=== PATIENT | female | born 1945 | race Caucasian/White ===

== ENCOUNTER 2017-01-14 05:07 | Observation (INO) | payer MEDICARE, OTHER ==
--- NOTE | 2017-01-14 05:33 | ED.PDOC ---
History of Present Illness - General Chief Complaint: General Stated Complaint: low blood sugar Time Seen by Provider: 01/14/17 05:28 Source: patient, RN notes reviewed, Vital Signs reviewed Exam Limitations: no limitations - History of Present Illness Initial Comments: Patient is a 71 y/o insulin dependent diabetic who was found unconscious by her just TMR TEACHER. He called EMS. EMS got an initial blood sugar of below 15. They gave her an AMP of D50 and patient regained consciousness. Patient has had several episodes of hypoglycemia in the past several months. She is unable to feel that her blood sugar is getting low until it is too late. 3 days ago, EMS was called out and she had to be given D50 at that time as well. Patient ate a sandwich at about 1800 last night and has not had anything to eat since. Patient has no complaints. She denies any fever, SOB, or nausea/vomiting. She is currently taking Lantus 68 units BID and Humalog 38 units BID. Patient's slot host is Trinidad Rubalcava M.D. in [facility]. Timing/Duration: 1/2 hour Severity: severe Improving Factors: other - D50 Associated Symptoms: denies symptoms Allergies/Adverse Reactions: Allergies Codeine Allergy (Verified 01/14/17 05:22) Home Medications: Ambulatory Orders Amitriptyline HCl 75 mg PO DAILY 01/14/17 Aspirin [(None)] 325 mg PO QD 01/14/17 Atorvastatin Calcium [Lipitor] 40 mg PO DAILY 01/14/17 Fluconazole 150 mg PO DAILY 01/14/17 Furosemide 40 mg PO DAILY 01/14/17 Gabapentin 300 mg PO DAILY 01/14/17 Hydrochlorothiazide 12.5 mg PO DAILY 01/14/17 Insulin Aspart [Novolog] 100 unit SC ACHS 01/14/17 Loratadine [Claritin] 10 mg PO DAILY 01/14/17 Metformin HCl 1,000 mg PO DAILY 01/14/17 Metoprolol Succinate [Metoprolol Succinate ER] 50 mg PO DAILY 01/14/17 Nitroglycerin 0.4 mg Tab [Nitrostat] 1 ea SL PRN 01/14/17 Ramipril 10 mg PO DAILY 01/14/17 Review of Systems - Review of Systems Constitutional: States: no symptoms reported EENTM: States: no symptoms reported Respiratory: States: no symptoms reported Cardiology: States: no symptoms reported Gastrointestinal/Abdominal: States: no symptoms reported Genitourinary: States: no symptoms reported Musculoskeletal: States: no symptoms reported Skin: States: no symptoms reported Neurological: States: other - syncope Endocrine: States: other - hypoglycemia Hematologic/Lymphatic: States: no symptoms reported All other Systems: Reviewed and Negative Past Medical History (General) - Patient Medical History Hx Seizures: No Hx Stroke: No Hx Dementia: No Hx Asthma: No Hx of COPD: No Hx Cardiac Disorders: No Hx Congestive Heart Failure: No Hx Pacemaker: No Hx Hypertension: Yes Hx Thyroid Disease: No Hx Diabetes: Yes Hx Gastroesophageal Reflux: No Hx Renal Disease: No Hx Cancer: No Hx of HIV: No Hx Hepatitis C: No Hx MRSA: No Surgical History: appendectomy, tonsillectomy, Hysterectomy - Vaccination History Hx Tetanus, Diphtheria Vaccination: No Hx Influenza Vaccination: Yes Hx Pneumococcal Vaccination: Yes Immunizations Up to Date: No - Social History Hx Tobacco Use: No Hx Chewing Tobacco Use: No Hx Alcohol Use: Yes Hx Substance Use: No Hx Substance Use Treatment: No Hx Depression: No Feels Threatened In Home Enviroment: No Feels Threatened In a Relationship: No Hx Physical Abuse: No Hx Emotional Abuse: No Hx Suspected Abuse: No Family Medical History - Family History Mother Family History: Unknown Living Status: Physical Exam - Physical Exam General Appearance: Alert, Comfortable, No apparent distress Eye Exam: bilateral normal Ears, Nose, Throat: hearing grossly normal, normal ENT inspection Neck: non-tender, full range of motion Respiratory: no respiratory distress, no accessory muscle use, wheezing Cardiovascular/Chest: regular rate, rhythm, no edema, no murmur Gastrointestinal/Abdominal: normal bowel sounds, non tender, soft, no organomegaly Extremity: non-tender, normal inspection Neurologic: alert, normal mood/affect, oriented x 3 Skin Exam: normal color, warm/dry Progress - Progress Progress: 01/14/17 07:[address] Barragan at 0700 - EKG/XRAY/CT XRAY: chest - No acute process Departure - Departure Disposition: Discharge to Home or Self Care Departure Forms: ED Discharge - Pt. Copy, Patient Portal Self Enrollment Referrals: Fausto Guzman MD [Primary Care Provider] - 1-2 Weeks Home Medications: Ambulatory Orders Amitriptyline HCl 75 mg PO DAILY 01/14/17 Aspirin [(None)] 325 mg PO QD 01/14/17 Atorvastatin Calcium [Lipitor] 40 mg PO DAILY 01/14/17 Fluconazole 150 mg PO DAILY 01/14/17 Furosemide 40 mg PO DAILY 01/14/17 Gabapentin 300 mg PO DAILY 01/14/17 Hydrochlorothiazide 12.5 mg PO DAILY 01/14/17 Insulin Aspart [Novolog] 100 unit SC ACHS 01/14/17 Loratadine [Claritin] 10 mg PO DAILY 01/14/17 Metformin HCl 1,000 mg PO DAILY 01/14/17 Metoprolol Succinate [Metoprolol Succinate ER] 50 mg PO DAILY 01/14/17 Nitroglycerin 0.4 mg Tab [Nitrostat] 1 ea SL PRN 01/14/17 Ramipril 10 mg PO DAILY 01/14/17
--- NOTE | 2017-01-14 06:16 | RAD ---
EXAM: Single view chest. INDICATION: Chest pain. COMPARISON: Chest x-ray: 07/18/2007. FINDINGS: Cardiac silhouette: Enlarged Genet: Unremarkable. Lobar consolidation: None. Pleural effusion: None. Pneumothorax: None. Other: None. Bones: Unremarkable. Other: None. IMPRESSION: 1. No acute cardiopulmonary process. Electronically signed by: Reji Guzman MD 01/14/2017 6:16 AM CDT
[2017-01-14] MEDS ORDERED: DEXTROSE 5% (AVIVA) 500ML 500 ML IVPB ONE (06:56)
[2017-01-14] MEDS ORDERED: DEXTROSE 50% 25 GM/50 ML SYG IV ONE (07:00)
[2017-01-14] MEDS: DEX 5% W/NACL 0.45% 1000ML 1,000 ML IVS PRN ×2 (07:29→22:15)
--- NOTE | 2017-01-14 08:55 | HP ---
SUPERVISING PHYSICIAN: Osmani Aguillon M.D. CHIEF COMPLAINT: Low blood sugar. HISTORY OF PRESENT ILLNESS: Ms. Cottrell is a 71 year-old insulin- dependent diabetic that is also on Metformin, who was found unconscious by her just prior to arrival at home. He called EMS. On arrival, EMS initiated blood sugar and found it be below 15. At that time, she was given 1 amp of D50 and the patient regained consciousness. The patient has had several episodes of hypoglycemia in the past several months. She is unable to feel when her blood sugar is getting low until it is way too late. Three days previous to this episode, EMS was called again to the patient's home where she was once again found to be hypoglycemic and she was given an amp of D50. The patient had no further complaints. No shortness of breath, fever, nausea or vomiting. It is noted that normally the patient takes 68 units of Lantus b.i.d. and Humalog 38 units b.i.d. along with Glucophage 1,000 mg b.i.d. Laboratory studies in the Emergency Department on arrival showed the patient had a blood sugar of 56 with normal electrolytes with potassium 4.8. CBC showed slightly elevated white count of 11.8 with no left shift. Urinalysis showed just 100 glucose, otherwise within normal limits. While in the E. R., she was given a sandwich, however her blood sugar continued to remain low despite D50 for a total of 3 amps eventually requiring the patient to be placed on a D5 half normal saline drip to maintain stable blood sugars. Given that she was requiring a significant amount of D50 and was remaining symptomatic with the blood sugars in the 40s while in the E. R., the patient is to be placed in Observation to further monitor and assist with hypoglycemia, and to adjust her insulin dosages. She was admitted in stable condition. PAST MEDICAL HISTORY: 1. Diabetes mellitus on insulin and oral therapy. 2. Hypertension. 3. Allergies. 4. Coronary artery disease. 5. Hyperlipidemia. 6. Morbid obesity. PAST SURGICAL HISTORY: 1. Appendectomy. 2. Tonsillectomy at 5 years of age. 3. Hysterectomy. 4. Coronary artery stent placement in 2005 at [facility]. 5. History of kidney stones. HOME MEDICATIONS: Please refer to updated list of medications that have been verified in the electronic medical records. Current medications listed include: 1. Hydrochlorothiazide 12.5 mg daily. 2. Neurontin 300 mg tablets 1 capsule t.i.d. p.r.n. 3. Aspirin 81 mg tablet every morning. 4. NovoLog 30 units t.i.d. 5. Metformin 1,000 mg twice daily. 6. Lantus 66 units b.i.d. 7. Metoprolol 25 mg twice daily. 8. Atorvastatin 40 mg daily. 9. Amitriptyline 75 mg tablet daily. 10. Lasix 1/2 tablet daily. FAMILY HISTORY: Father is from diabetes complications at 83. Mother is at a young age in 1945. 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 She is . She denies ever smoking and only drinks on rare occasions. REVIEW OF SYSTEMS: CONSTITUTIONAL: Negative for any chills, fever, fatigue or unintentional weight loss or weight gain. CARDIOVASCULAR: Denies any chest pains, palpitations or syncopal episodes. RESPIRATORY: Does note that she has some mild exertional dyspnea, but nothing new. She denies a cough. GASTROINTESTINAL: Denies any constipation, diarrhea or abdominal pain. GENITOURINARY: Denies any dysuria, nocturia or other urinary symptoms. NEUROLOGIC: Negative for any types of headaches or syncopal episodes. ENDOCRINE: As noted in the History of Present Illness, several hypoglycemic episodes in the last several weeks. PHYSICAL EXAMINATION: VITAL SIGNS: Temperature 98.6, pulse 78, blood pressure 164/81, respirations 18 , satting 99% on room air. Admission weight 120.9 kg. GENERAL: The patient is alert. Appears to be in no distress. She is well nourished, obviously obese but well hydrated. HEENT: Tympanic membranes are clear bilaterally. Oropharynx is pink and moist without any lesions. NECK: Supple, non-tender, full range of motion with no jugular venous distention noted. CHEST: Lungs are clear to auscultation bilaterally without any rhonchi, wheezing or rales. CARDIOVASCULAR: Regular rate and rhythm without appreciable murmurs, gallops, or rubs. ABDOMEN: Obese but soft, non-tender. Positive bowel sounds. EXTREMITIES: No clubbing, cyanosis or edema. NEUROLOGIC: She is alert and oriented times three. Cranial nerves II-XII are grossly intact. Facial features are symmetrical. Extraocular movements are within normal limits. There is no nystagmus noted. There are no focal or lateralizing neuromotor deficits. LABORATORY: CBC on admission showed a mild leukocytosis of 11.8 with hemoglobin 12.4, hematocrit 38.8, platelets 282,000. Differential showed to be without a left shift. Chemistries shows normal electrolytes with potassium 4.8. Initial blood sugar was 98 on admission to the Emergency Department, shortly after was down to 56. Hemoglobin A1c was 6.1. Glucose remained low and on admission after D5 half normal saline initiation in the Emergency Department and at the time of admission to the Medical/Surgical floor blood sugar was 98. Urinalysis shows 100 glucose, otherwise within normal limits. RADIOLOGY: Chest x-ray per radiology interpretation shows no acute cardiopulmonary processes. ASSESSMENT: 1. Hypoglycemic episode with labile blood sugars secondary to insulin mismanagement requiring close monitoring and IV glucose in a patient both on insulin and oral therapies, type 2 diabetes mellitus. 2. History of type 2 diabetes mellitus both on insulin and oral therapy with poorly controlled blood sugars with significant hypoglycemic events with the patient noncompliant with monitoring of blood sugars at home. 3. Mild renal insufficiency. 4. History of hypertension. 5. Hyperlipidemia. 6. Morbid obesity as noted with a body mass index of 45.8. PLAN: The patient will be placed in Observation to assist with further stabilization of her blood sugars. She will remain on D5 half normal saline until her blood sugars remain stable. At that point, will decrease her rate and start on an oral diet. Until she does stabilize on her blood sugars, continue to monitor blood sugars by finger stick every 2 hours after which when she stabilizes will go to a.c. and h.s. with a sliding scale. She will need close monitoring and once given enough time to clear her previous insulin regimen, initiation back on insulin and oral therapy regimen with close monitoring prior to discharge. I will try to touch base with her carpet floor layer apprentice as well as Dr. Guzman tomorrow to further assist with discharge planning and management of her insulin regimen. Anticipate length of stay to be 1 to 2 days. Until discharge, continue to monitor closely and treat appropriately. #[id number] [facility]
[2017-01-14] MEDS ORDERED: SODIUM CHLORIDE 0.9% (FLUSH) 10 ML SYG IV PRN (09:24)
[2017-01-14] MEDS ORDERED: IV SET AND CAP CHANGE INJ INJ SCH (09:30)
[2017-01-14] MEDS: METOPROLOL SUCCINATE XL 50 MG TAB PO SCH (13:38)
[2017-01-14] MEDS: RAMIPRIL 5 MG CAP PO SCH ×2 (13:39→21:20)
[2017-01-14] MEDS: GABAPENTIN 300 MG CAP PO SCH ×2 (13:39→21:19)
[2017-01-14] MEDS ORDERED: GLUCAGON INJ 1 MG VIAL SUBCU PRN (17:24)
[2017-01-14] MEDS: ATORVASTATIN 20 MG TAB PO SCH (21:20)
[2017-01-14] MEDS: AMITRIPTYLINE HCL 25 MG TAB PO SCH (21:20)
[2017-01-14] MEDS: INSULIN LISPRO 100 UNITS/ML PEN SUBCU SCH (22:00)
[2017-01-15] MEDS: INSULIN LISPRO 100 UNITS/ML PEN SUBCU SCH ×4 (07:49→21:37)
[2017-01-15] MEDS: CELECOXIB 100 MG CAP PO SCH (07:53)
[2017-01-15] MEDS: METOPROLOL SUCCINATE XL 50 MG TAB PO SCH (08:50)
[2017-01-15] MEDS: RAMIPRIL 5 MG CAP PO SCH ×2 (08:50→20:50)
[2017-01-15] MEDS: GABAPENTIN 300 MG CAP PO SCH ×2 (08:50→20:50)
[2017-01-15] MEDS: ASPIRIN TABLET 325 MG TAB PO SCH (08:50)
[2017-01-15] MEDS: metFORMIN HCL 500 MG TAB PO SCH ×2 (09:01→16:56)
[2017-01-15] MEDS ORDERED: metFORMIN HCL 500 MG TAB ONE (09:01)
[2017-01-15] MEDS: KCL 20MEQ/0.45% NS 1,000 ML IVS PRN (11:46)
--- NOTE | 2017-01-15 18:37 | PN ---
DATE: 01/15/17 SUPERVISING PHYSICIAN: Venkat Barragan M.D. SUBJECTIVE: The patient feels better this morning. She still remains on half D5W IV drip and has shown much better stabilization in his blood sugars. She remains afebrile. She has had no episodes of hypoglycemia since admission. She remains on a 2,000 ADA calorie diet and is currently on insulin sliding scale. OBJECTIVE: VITAL SIGNS: Temperature 97.6, pulse 84, blood pressure 124/68, respirations 16, satting 94% on room air. Weight is 120.2 kg. CHEST: Clear to auscultation bilaterally. HEART: Regular rate and rhythm. ABDOMEN: Obese but soft, non-tender. Positive bowel sounds. EXTREMITIES: No clubbing, cyanosis or edema. NEUROLOGIC: She is alert and oriented times three. LABORATORY: CBC this morning shows normalization of her white count to 9.0, hemoglobin 11.5, hematocrit 34.8, platelet count 269,000. Differential shows to be within normal limits. Chemistries today show normal electrolytes with potassium 4.6 with BUN 32, creatinine 1.34, glucose 130. Review of her blood sugars have been fairly steady between 123 and 179, calcium 8.8. ASSESSMENT: 1. Hypoglycemic episodes, multiple with labile blood sugars secondary to insulin mismanagement requiring close monitoring of IV glucose since admission in a patient both on insulin and oral therapies with type 2 diabetes mellitus. 2. History of type 2 diabetes mellitus both on insulin and oral therapy with poorly controlled blood sugars with significant hypoglycemic events with the patient being very noncompliant with her monitoring of blood sugars as well as diet. 3. Mild renal insufficiency and likely some dehydration showing improvement with fluids. 4. History of hypertension, stable. 5. Hyperlipidemia. 6. Morbid obesity with a body mass index of 45.8, although the patient has reported that she has been losing weight as she has been working out since assisted. PLAN: The patient has shown stabilization in her blood sugar since admission. Will plan to transition her back to her oral medications to include Metformin 1, 000 twice daily and continue with sliding scale. I will change her IV fluids from half D5 to half normal saline with 20 of potassium to continue with assistance in improving her renal function. She will need close monitoring in regards to her blood sugars and need for insulin to better assess her insulin needs once discharged. Anticipate probably discharge tomorrow once we can get a better plan of care in regards to needed insulin therapy. Will need to touch base with her handle machine operator once close to discharge to further assist in discharging with a plan for insulin therapy. She sees Dr. Trinidad Rubalcava in [place]. Until discharge, will continue to monitor the patient closely and treat appropriately. #[id number] [facility]
--- NOTE | 2017-01-15 19:11 | PCM.CORE ---
Physician DVT/VTE - Nurse DVT Assessment & Total Each Risk Factor Represents 2 Points: Age 60-74 Each Risk Factor Represents 1 Point: Medical PT at Bed Rest Each Risk Factor is 1 Point: Obesity (BMI >25) DVT Assessment Score: 4 - 5 or more Very High Risk Treatments: Early Ambulation *, Sequential Compression Device Pharmacological: Enoxaparin 40mg SQ Daily
[2017-01-15] MEDS: AMITRIPTYLINE HCL 25 MG TAB PO SCH (20:50)
[2017-01-15] MEDS: ATORVASTATIN 20 MG TAB PO SCH (20:50)
[2017-01-15] MEDS ORDERED: ENOXAPARIN SODIUM 40 MG/0.4 ML SYG SUBCU SCH (21:00)
[2017-01-16] MEDS: KCL 20MEQ/0.45% NS 1,000 ML IVS PRN (00:40)
[2017-01-16] MEDS: INSULIN LISPRO 100 UNITS/ML PEN SUBCU SCH ×3 (07:31→16:33)
[2017-01-16] MEDS: CELECOXIB 100 MG CAP PO SCH (07:56)
[2017-01-16] MEDS: metFORMIN HCL 500 MG TAB PO SCH ×2 (07:56→16:48)
[2017-01-16] MEDS ORDERED: SODIUM CHLORIDE 0.9% (FLUSH) 10 ML SYG IV SCH (09:00)
[2017-01-16] MEDS: GABAPENTIN 300 MG CAP PO SCH (09:05)
[2017-01-16] MEDS: RAMIPRIL 5 MG CAP PO SCH (09:05)
[2017-01-16] MEDS: ASPIRIN TABLET 325 MG TAB PO SCH (09:05)
[2017-01-16] MEDS: METOPROLOL SUCCINATE XL 50 MG TAB PO SCH (09:05)
[2017-01-16 19:15] VITALS: BP 132/88; TEMP 98.7; O2SAT 97
--- NOTE | 2017-01-29 10:43 | DS ---
SUPERVISING PHYSICIAN: Venkat Barragan MD DISCHARGE DIAGNOSIS: 1. Hypoglycemic episode, multiple with labile blood sugars secondary to insulin mismanagement, requiring close monitoring and IV glucose since admission in a patient on both insulin and oral therapies. 2. History of type 2 diabetes mellitus on both insulin and oral therapy with poorly controlled blood sugars with significant hypoglycemic events with the patient very noncompliant with monitoring of blood sugars as well as diet. 3. Mild renal insufficiency and likely some dehydration, showing improvement with fluids. 4. History of hypertension, stable. 5. Hyperlipidemia. 6. Morbid obesity with a body mass index of 45.8. HISTORY OF PRESENT ILLNESS: This is a 71-year-old female patient who is an insulin-dependent diabetic that is also on Metformin, who was found unconscious by her just prior to arrival at home. He called EMS. On arrival, EMS initiated blood sugar and found it be below 15. At that time, she was given 1 amp of D50 and the patient regained consciousness. The patient has been reported to have had several episodes of hypoglycemia in the past several months. She does not feel when her blood sugar is getting low. Three days prior to her admission, she was found by EMS to be hypoglycemic and given D50. The patient normally takes 68 units of Lantus b.i.d. and Humalog 38 units b.i.d. along with Glucophage 1,000 mg b.i.d. She was admitted to the hospital to stabilize her blood sugars and further monitor her hypoglycemia as well as adjust her insulin dosage. HOSPITAL COURSE: Over the next two days, her blood sugars stabilized as well as her labs. She sees Dr. Trinidad Rubalcava in [place] who is her drosophere operator. Her CBC stabilized as well as her chemistries. Her blood sugars were in the 130s to 170s. Her long-acting insulin was never re-started. I spoke to her drosophere operator's office and she has an appointment with Dr. Rubalcava on 01/31/17 at 11:15. She will be discharged home. DISCHARGE PLAN: The patient will be discharged home in stable condition. She is to resume her diabetic diet. She is to increase her activity as tolerated and followup with Dr. Rubalcava on 01/31/17 at 11:15 as well as she needs to followup with Dr. Guzman at some point. She has also been told not to re-start her long-acting insulin and continue her sliding scale and she was given a sliding scale per the hospital protocol until she can see Dr. Rubalcava and she can adjust her dosage. DISCHARGE MEDICATIONS: 1. Aspirin. 2. Ramipril. 3. Nitroglycerin. 4. Metoprolol. 5. Metformin. 6. Loratadine. 7. Hydrochlorothiazide. 8. Gabapentin. 9. Furosemide. 10. Fluconazole. 11. Atorvastatin. 12. Amitriptyline. 13. Celebrex. 14. Meloxicam. 15. Humalog insulin per hospital sliding scale. Dr. Barragan is the collaborating physician and available for consultation. #[id number] [facility]
== END 2017-01-16 19:30 | disposition home or self-care (01) ==
LOC: ER 05:07 → OBSVTOIN 08:53 → MS 08:53 → INTOOBSV 08:53
PROVIDERS: ADMIT Nurse Practitioner Family; ATTEND Nurse Practitioner Acute Care
DX: E11.641 Type 2 diabetes mellitus with hypoglycemia with coma (principal); N17.9 Acute kidney failure, unspecified; Z68.42 Body mass index [BMI] 45.0-49.9, adult; E86.0 Dehydration; I10 Essential (primary) hypertension; N28.9 Disorder of kidney and ureter, unspecified; E78.5 Hyperlipidemia, unspecified; E66.01 Morbid (severe) obesity due to excess calories; I25.10 Atherosclerotic heart disease of native coronary artery without angina pectoris; Z91.11 Patient's noncompliance with dietary regimen; Z91.19 Patient's noncompliance with other medical treatment and regimen; Z79.4 Long term (current) use of insulin; Z79.84 Long term (current) use of oral hypoglycemic drugs; Z79.82 Long term (current) use of aspirin; Z79.899 Other long term (current) drug therapy; Z88.6 Allergy status to analgesic agent; Z95.5 Presence of coronary angioplasty implant and graft; Z83.3 Family history of diabetes mellitus
CPT/HCPCS: 36415 ×3; 36416 ×16; 71010; 80048 ×2; 80053; 81001; 82948 ×18; 83036; 85025 ×3; 94760 ×4; 96361 ×3; 96372 ×3; 96374; 96376; 99284; G0378; J1650; J1815; J3480 ×2; J7799 ×3

== ENCOUNTER → 2017-03-07 | Outpatient (CLI) | payer OTHER, MEDICARE ==
--- NOTE | 2017-03-08 10:30 | RAD ---
EXAM DESCRIPTION: Toes,Left CLINICAL HISTORY: 71 years, Female, PAIN COMPARISON: None. FINDINGS: No evidence of fractures in the left toes. Joint space is unremarkable. Soft tissues unremarkable except for a small sliver of calcification seen dorsally to the fourth digit distal interphalangeal joint. IMPRESSION: No acute findings. A small soft tissue calcifications seen at the dorsal aspect of the fourth digit distal interphalangeal joint. Nonspecific. Electronically signed by: Roosevelt Reynolds MD 03/08/2017 10:29 AM CDT
== END | disposition home or self-care (01) ==
LOC: LAB.O 12:10
PROVIDERS: ATTEND Nurse Practitioner Family
DX: M79.675 Pain in left toe(s) (principal)

== ENCOUNTER 2019-08-09 11:30 | Emergency (ER) | payer MEDICARE, OTHER ==
[2019-08-09] MEDS ORDERED: HYDROmorphone HCL INJ 2 MG/ML VIAL IM ONE ×2 (11:52→15:37)
--- NOTE | 2019-08-09 13:28 | RAD ---
EXAM DESCRIPTION: Hip,Left 2 Views CLINICAL HISTORY: 74 years Female, pain COMPARISON: None. FINDINGS: 2 views of the left hip show mild to moderate degenerative changes and vascular calcifications without acute fracture or malalignment. No radiopaque foreign body. IMPRESSION: Degenerative changes and vascular calcifications without acute left hip abnormality. If clinical suspicion of acute hip abnormality persists, CT or MRI should be considered. Electronically signed by: Rafiq Ambrosio MD 08/09/2019 1:26 PM ACUPUNCTURIST
[2019-08-09] MEDS ORDERED: LIDOCAINE 1% 10 ML VIAL INJ ONE (13:51)
[2019-08-09] MEDS ORDERED: TRIAMCINOLONE ACETONIDE INJ 40 MG/ML VIAL ONE ×2 (13:51→13:54)
--- NOTE | 2019-08-09 15:19 | CT ---
EXAM DESCRIPTION: Pelvis CLINICAL HISTORY: pain COMPARISON: Left hip radiograph same day.. TECHNIQUE: CT of the pelvis was obtained without intravenous contrast. MPRs are created and reviewed as well. FINDINGS: BONE AND JOINTS: The pelvis bones are intact. No acute displaced fracture or dislocation seen. The bilateral sacroiliac joints and symphysis pubis are intact without diastases. The left hip joint is intact without displaced fracture or dislocation. Mild bilateral hip osteoarthrosis with acetabular roof marginal osteophyte formation. No significant left hip joint effusion. No suspicious lytic or sclerotic osseous lesion. Mild degenerative changes of the bilateral sacroiliac joints with vacuum phenomenon. Mild lower lumbar spine spondylosis. SOFT TISSUES: Mild fat stranding and subcutaneous gas is noted along the left lateral hip soft tissues. No free fluid within the pelvis. No pelvic sidewall hematoma. No drainable fluid collection or abscess. IMPRESSION: 1. Mild fat stranding and gas within the left lateral hip subcutaneous soft tissues. For correlation with trauma or injections within this region. No drainable fluid collection or abscess. 2. No acute displaced pelvic or left hip fracture or dislocation. If patient's symptoms persist, consider further evaluation with MRI. 3. Mild bilateral hip osteoarthrosis with acetabular roof marginal osteophyte and mild acetabular over coverage. This exam was performed according to our departmental dose-optimization program, which includes automated exposure control, adjustment of the mA and/or kV according to patient size and/or use of iterative reconstruction technique. Electronically signed by: Marc Angulo DO 08/09/2019 3:18 PM MESH WORKER
--- NOTE | 2019-08-09 15:26 | ED.PDOC ---
History of Present Illness - General Chief Complaint: General Stated Complaint: left hip pain Time Seen by Provider: 08/09/19 11:52 - History of Present Illness Initial Comments: c/o having L hip pain since 2 weeks , got worse this morning , no trauma or injury , decrease range of motion , no fever or chills . Severity: severe Improving Factors: nothing Worsening Factors: movement Associated Symptoms: denies symptoms Allergies/Adverse Reactions: Allergies Codeine Allergy (Verified 01/14/17 05:22) Home Medications: Ambulatory Orders RX: Aspirin 325 mg PO DAILY 01/14/17 RX: Gabapentin 300 mg PO TID 01/14/17 RX: Hydrochlorothiazide 12.5 mg PO DAILY 01/14/17 RX: Meloxicam [Mobic] 15 mg PO DAILY 01/14/17 RX: Metformin HCl [Metformin Hydrochloride] 1,000 mg PO BID 01/14/17 RX: Nitroglycerin 0.4 mg Tab [Nitrostat] 1 ea SL PRN 01/14/17 RX: Ramipril 10 mg PO BID 01/14/17 Cyanocobalamin [Vitamin B-12] 2,500 mcg SL DAILY 08/09/19 Insulin Glargine [Lantus Solostar] 38 unit SC BID 08/09/19 RX: Allopurinol 300 mg PO PRN 08/09/19 RX: Diclofenac Sodium (Topical) [Diclofenac Sodium] 1 % TD QID 5 Days gel 08/09/19 RX: Insulin Lispro [Humalog] 27 units SUBCU TID 08/09/19 RX: Tramadol HCl 50 mg PO QID #10 tab 08/09/19 Thiamine HCl [Vitamin B-1] 250 mg PO DAILY 08/09/19 Review of Systems - Review of Systems Constitutional: States: no symptoms reported EENTM: States: no symptoms reported Respiratory: States: no symptoms reported Cardiology: States: no symptoms reported Gastrointestinal/Abdominal: States: no symptoms reported Genitourinary: States: no symptoms reported Musculoskeletal: States: see HPI Skin: States: no symptoms reported Neurological: States: no symptoms reported Endocrine: States: no symptoms reported Hematologic/Lymphatic: States: no symptoms reported Past Medical History (General) - Patient Medical History Hx Seizures: No Hx Stroke: No Hx Dementia: No Hx Asthma: No Hx of COPD: No Hx Cardiac Disorders: No Hx Congestive Heart Failure: No Hx Pacemaker: No Hx Hypertension: Yes Hx Thyroid Disease: No Hx Diabetes: Yes Hx Gastroesophageal Reflux: No Hx Renal Disease: No Hx Cancer: No Hx of HIV: No Hx Hepatitis C: No Hx MRSA: No - Vaccination History Hx Tetanus, Diphtheria Vaccination: No Hx Influenza Vaccination: Yes Hx Pneumococcal Vaccination: Yes - Social History Hx Tobacco Use: No Hx Chewing Tobacco Use: No Hx Alcohol Use: No Hx Substance Use: No Hx Substance Use Treatment: No Hx Depression: No Hx Physical Abuse: No Hx Emotional Abuse: No Hx Suspected Abuse: No Family Medical History - Family History Mother Family History: Unknown Living Status: Physical Exam - Physical Exam General Appearance: Alert, Other - In Pain Eye Exam: bilateral normal Ears, Nose, Throat: normal ENT inspection Neck: full range of motion, supple, normal inspection Respiratory: lungs clear, normal breath sounds, no respiratory distress, no accessory muscle use Cardiovascular/Chest: regular rate, rhythm, no edema, no gallop, no JVD, no murmur Gastrointestinal/Abdominal: non tender, soft Extremity: other - tenderness at the L hip and trochanteric bursa with decrease range of motion Skin Exam: normal color Lymphatic: no adenopathy Progress - Progress Progress: 08/09/19 15:55 Pt says that she is allergic to codeine as she gets too sleepy with it , no other side effects , pt says that she has taken Dilaudid before without any side effects 08/12/19 00:35 Procedure Note For local steroid injection for trochanteric bursitis The area was prepped in the usual sterile manner. The needle was inserted into the affected area and the kenalog and lidocaine was injected. There were no complications during this procedure. - Results/Orders Results/Orders: Laboratory Results WBC 11.8 K/mm3 (4.8-10.8) H 08/09/19 14:05 RBC 4.54 M/mm3 (4.20-5.40) 08/09/19 14:05 Hgb 14.1 gm/dL (12.0-16.0) 08/09/19 14:05 Hct 42.6 % (36.0-47.0) 08/09/19 14:05 MCV 93.9 fl (81.0-99.0) 08/09/19 14:05 MCH 31.0 pg (27.0-31.0) 08/09/19 14:05 MCHC 33.0 g/dL (33.0-37.0) 08/09/19 14:05 RDW 14.5 % (11.5-14.5) 08/09/19 14:05 Plt Count 308 K/mm3 (130-400) 08/09/19 14:05 MPV 8.2 fl (7.40-10.4) 08/09/19 14:05 Absolute Neuts (auto) 9.00 K/uL (1.8-6.8) H 08/09/19 14:05 Absolute Lymphs (auto) 1.50 K/uL (1.0-3.4) 08/09/19 14:05 Absolute Monos (auto) 0.50 K/uL (0.2-0.8) 08/09/19 14:05 Absolute Eos (auto) 0.70 K/uL (0.0-0.4) H 08/09/19 14:05 Absolute Basos (auto) 0.10 K/uL (0.0-0.1) 08/09/19 14:05 Neutrophils % 76.6 % (42.0-78.0) 08/09/19 14:05 Lymphocytes % 12.6 % (20.0-50.0) L 08/09/19 14:05 Monocytes % 4.1 % (2.0-9.0) 08/09/19 14:05 Eosinophils % 6.0 % (1.0-5.0) H 08/09/19 14:05 Basophils % 0.7 % (0.0-2.0) 08/09/19 14:05 Sodium 138 mmol/L (135-145) 08/09/19 14:05 Potassium 4.7 mmol/L (3.6-5.0) 08/09/19 14:05 Chloride 102 mmol/L (101-111) 08/09/19 14:05 Carbon Dioxide 26 mmol/L (21-31) 08/09/19 14:05 Anion Gap 14.7 (12-18) 08/09/19 14:05 BUN 25 mg/dL (7-18) H 08/09/19 14:05 Creatinine 1.11 mg/dL (0.6-1.3) 08/09/19 14:05 BUN/Creatinine Ratio 22.5 (10-20) H 08/09/19 14:05 Random Glucose 91 mg/dL (70-105) 08/09/19 14:05 Serum Osmolality 279.7 mOsm/L (275-295) 08/09/19 14:05 Calcium 9.8 mg/dL (8.4-10.2) 08/09/19 14:05 Total Bilirubin 0.3 mg/dL (0.2-1.0) 08/09/19 14:05 AST 29 IU/L (10-42) 08/09/19 14:05 ALT 27 IU/L (10-60) 08/09/19 14:05 Alkaline Phosphatase 57 IU/L (42-121) 08/09/19 14:05 Serum Total Protein 7.0 gm/dL (6.4-8.2) 08/09/19 14:05 Albumin 3.7 g/dl (3.2-5.5) 08/09/19 14:05 Globulin 3.3 gm/dL (2.3-3.5) 08/09/19 14:05 Albumin/Globulin Ratio 1.1 (1.1-1.9) 08/09/19 14:05 Departure - Departure Clinical Impression: Hip pain, left, Trochanteric bursitis of left hip Time of Disposition: 15:51 Disposition: Discharge to Home or Self Care Condition: Fair Departure Forms: ED Discharge - Pt. Copy, Patient Portal Self Enrollment Diet: resume usual diet Activity: increase activity as tolerated, walking as tolerated Referrals: JOHAN OCONNOR IV, MANAGER VALUATION [Primary Care Provider] - 1-2 Days Prescriptions: RX: Diclofenac Sodium (Topical) [Diclofenac Sodium] 1 % TD QID 5 Days gel RX: Tramadol HCl 50 mg PO QID #10 tab Home Medications: Ambulatory Orders RX: Aspirin 325 mg PO DAILY 01/14/17 RX: Gabapentin 300 mg PO TID 01/14/17 RX: Hydrochlorothiazide 12.5 mg PO DAILY 01/14/17 RX: Meloxicam [Mobic] 15 mg PO DAILY 01/14/17 RX: Metformin HCl [Metformin Hydrochloride] 1,000 mg PO BID 01/14/17 RX: Nitroglycerin 0.4 mg Tab [Nitrostat] 1 ea SL PRN 01/14/17 RX: Ramipril 10 mg PO BID 01/14/17 Cyanocobalamin [Vitamin B-12] 2,500 mcg SL DAILY 08/09/19 Insulin Glargine [Lantus Solostar] 38 unit SC BID 08/09/19 RX: Allopurinol 300 mg PO PRN 08/09/19 RX: Diclofenac Sodium (Topical) [Diclofenac Sodium] 1 % TD QID 5 Days gel 08/09/19 RX: Insulin Lispro [Humalog] 27 units SUBCU TID 08/09/19 RX: Tramadol HCl 50 mg PO QID #10 tab 08/09/19 Thiamine HCl [Vitamin B-1] 250 mg PO DAILY 08/09/19 Additional Instructions: Follow up PCP in 1-2 days Refer to ortho
[2019-08-09] MEDS ORDERED: KETOROLAC TROMETHAMINE INJ 30 MG/ML VIAL IM ONE (15:54)
[2019-08-09 17:05] VITALS: BP 125/86; TEMP 97; O2SAT 97
== END 2019-08-09 16:23 | disposition home or self-care (01) ==
LOC: ER 11:30
DX: M70.62 Trochanteric bursitis, left hip (principal); I10 Essential (primary) hypertension; E11.9 Type 2 diabetes mellitus without complications; Z79.4 Long term (current) use of insulin; Z79.899 Other long term (current) drug therapy; Z79.82 Long term (current) use of aspirin; Z88.5 Allergy status to narcotic agent
CPT/HCPCS: 72192; 73502; 80053; 85025; J1170; J1885; J3301

== ENCOUNTER 2019-09-14 15:44 | Inpatient (IN) | payer MEDICARE, OTHER ==
[2019-09-14] MEDS ORDERED: SODIUM CHLORIDE 0.9% 1000ML 1,000 ML ONE (15:51)
[2019-09-14] MEDS ORDERED: SODIUM CHLORIDE 0.9% (FLUSH) 10 ML SYG IV PRN ×2 (15:56→21:18)
[2019-09-14] MEDS ORDERED: SODIUM CHLORIDE 0.9% 1000ML 1,000 ML IVS ONE ×4 (15:57→20:16)
--- NOTE | 2019-09-14 16:01 | ED.PDOC ---
History of Present Illness - General Time Seen by Provider: 09/14/19 15:56 Source: patient, EMS notes reviewed - History of Present Illness Initial Comments: 74 yo female with PMH of HTN, DM2, CAD (last stent 2005) who is bib EMS from home for cc of low blood sugar. Reports she saw her PCP this morning and was doing well. She took her long-acting insulin 50 units at 9 am. She took 20 units of fast-acting just prior to eating at 12:20 pm. She ate half of a chili dog. Approx 30 mins ago had rapid onset weakness and dyspnea. She checked her blood sugar which was in the 50s. She states she tried to eat but could not get it up so called EMS. En route, pt given D10 bolus and d-stick 180s on arrival. However noted to be hypoxic 84% on room air on arrival and hypotensive BP 70s/30s. Pt denies any chest pain, fevers, abd pain, n/v/d. Mostly complains of feeling generally weak and unwell. Allergies/Adverse Reactions: Allergies Codeine Allergy (Verified 01/14/17 05:22) Home Medications: Ambulatory Orders Aspirin 325 mg PO DAILY 01/14/17 Gabapentin 300 mg PO TID 01/14/17 Hydrochlorothiazide 12.5 mg PO DAILY 01/14/17 Meloxicam [Mobic] 15 mg PO DAILY 01/14/17 Metformin HCl [Metformin Hydrochloride] 1,000 mg PO BID 01/14/17 Nitroglycerin 0.4 mg Tab [Nitrostat] 1 ea SL PRN 01/14/17 Ramipril 10 mg PO BID 01/14/17 Allopurinol 300 mg PO PRN 08/09/19 Cyanocobalamin [Vitamin B-12] 2,500 mcg SL DAILY 08/09/19 Diclofenac Sodium (Topical) [Diclofenac Sodium] 1 % TD QID 5 Days gel 08/09/19 Insulin Glargine [Lantus Solostar] 38 unit SC BID 08/09/19 Insulin Lispro [Humalog] 27 units SUBCU TID 08/09/19 Thiamine HCl [Vitamin B-1] 250 mg PO DAILY 08/09/19 Tramadol HCl 50 mg PO QID #10 tab 08/09/19 Review of Systems - Review of Systems Review of Systems: 09/14/19 16:01 as per HPI All other Systems: Reviewed and Negative Past Medical History (General) - Patient Medical History Hx Seizures: No Hx Stroke: No Hx Dementia: No Hx Asthma: No Hx of COPD: No Hx Cardiac Disorders: No Hx Congestive Heart Failure: No Hx Pacemaker: No Hx Hypertension: Yes Hx Thyroid Disease: No Hx Diabetes: Yes Hx Gastroesophageal Reflux: No Hx Renal Disease: No Hx Cancer: No Hx of HIV: No Hx Hepatitis C: No Hx MRSA: No - Vaccination History Hx Tetanus, Diphtheria Vaccination: No Hx Influenza Vaccination: Yes Hx Pneumococcal Vaccination: Yes - Social History Hx Tobacco Use: No Hx Chewing Tobacco Use: No Hx Alcohol Use: No Hx Substance Use: No Hx Substance Use Treatment: No Hx Depression: No Hx Physical Abuse: No Hx Emotional Abuse: No Hx Suspected Abuse: No Family Medical History - Family History Mother Family History: Unknown Living Status: Physical Exam - Physical Exam General Appearance: Anxious, Ill Appearing Eye Exam: bilateral normal Ears, Nose, Throat: hearing grossly normal, normal ENT inspection Neck: non-tender, full range of motion, supple, normal inspection Respiratory: lungs clear, normal breath sounds, no respiratory distress Cardiovascular/Chest: no edema, tachycardia Peripheral Pulses: radial,right: 1+, radial,left: 1+ Gastrointestinal/Abdominal: normal bowel sounds, non tender, soft, no organomegaly Back Exam: no CVA tenderness, no vertebral tenderness Extremity: non-tender, normal inspection, no pedal edema, no calf tenderness Neurologic: no motor/sensory deficits, normal mood/affect, oriented x 3, other - appears drowsy, lethargic Skin Exam: normal color, warm/dry Lymphatic: no adenopathy Progress - Progress Progress: 09/14/19 16:02 Hypotension with weakness -consider 2/2 hypoglycemia vs sepsis vs ACS vs PE vs other -stat cardiac work-up, lactate, blood cx's -IV fluid boluses, Levophed on standby 09/14/19 17:35 -Labs reveal leukocytosis with lactate 5.5. BUN 66, Cr 3.4 - LUMA. Concern for sepsis, source unknown. CXR with cardiomegaly but no focal infiltrates or acute processes per my read. Flu is negative. Placing hayes to obtain UA. -Also Hgb is 9.1, down from 11 one month ago - question occult blood loss anemia. -will check CT A/P and Left hip XR as pt complaining of worsening left hip pain today from chronic -begin Zosyn 2.25 g IV for broad spectrum coverage -BP has stabilized 120s/60s, HR 90s, pt much more alert, feels much better. Continue 3rd L NS bolus and repeat lactate. 09/14/19 19:54 -Repeat lactate down to 2.6. BP 120s/50s, HR 100, SpO2 96% on room air. Pt reports feeling much better. -XR L hip shows no acute processes -CT C/A/P reveals only some questionable wall thickening of descending colon and sigmoid colon. To me there also appears to be some bladder wall thickening as well c/w possible UTI. Pt denies any recent abd pain or diarrhea. Still awaiting UA - tried to straight cath earlier but bladder was dry. -Spoke with Lencho Rojas regarding pt and he accepts for admission. Dx of sepsis. Suspect source UTI vs colitis. Also hypoglycemia and hypoxia, both now resolved. Question acute anemia of unknown etiology as well. Richard Sosa MD Billing #[id number] - EKG/XRAY/CT EKG: Sinus - sinus tach, HR 100, no ST elevations noted, q waves in anteroseptal leads indicative of old [place], left axis deviation present, borderline prolonged QTc 510 msecs, no prior EKG for comparison. Departure - Departure Clinical Impression: Sepsis associated hypotension Sepsis Qualifiers: Sepsis type: sepsis due to unspecified organism Sepsis acute organ dysfunction status: with acute organ dysfunction Severe sepsis acute organ dysfunction type: acute renal failure Acute renal failure type: unspecified Severe sepsis shock status: with septic shock Qualified Code(s): A41.9 - Sepsis, unspecified organism; R65.21 - Severe sepsis with septic shock; N17.9 - Acute kidney failure, unspecified Time of Disposition: 19:58 Disposition: Admit Patient Condition: Serious Referrals: JOHAN OCONNOR IV, RISK ASSESSOR [Primary Care Provider] - 1-2 Weeks Home Medications: Ambulatory Orders Aspirin 325 mg PO DAILY 01/14/17 Gabapentin 300 mg PO TID 01/14/17 Hydrochlorothiazide 12.5 mg PO DAILY 01/14/17 Meloxicam [Mobic] 15 mg PO DAILY 01/14/17 Metformin HCl [Metformin Hydrochloride] 1,000 mg PO BID 01/14/17 Nitroglycerin 0.4 mg Tab [Nitrostat] 1 ea SL PRN 01/14/17 Ramipril 10 mg PO BID 01/14/17 Allopurinol 300 mg PO PRN 08/09/19 Cyanocobalamin [Vitamin B-12] 2,500 mcg SL DAILY 08/09/19 Diclofenac Sodium (Topical) [Diclofenac Sodium] 1 % TD QID 5 Days gel 08/09/19 Insulin Glargine [Lantus Solostar] 38 unit SC BID 08/09/19 Insulin Lispro [Humalog] 27 units SUBCU TID 08/09/19 Thiamine HCl [Vitamin B-1] 250 mg PO DAILY 08/09/19 Tramadol HCl 50 mg PO QID #10 tab 08/09/19 Critical Care Note - Critical Care Note Total Time (mins): 75 Comments: Upon my evaluation, this patient had a high probability of life-threatening deterioration due to sepsis, hypotension, hypoglycemia, which required my direct attention, intervention, and management. I have provided 75 minutes of critical care time exclusive of separately billable procedures. My time included direct patient care, review of labs and radiology, obtaining history from and counseling the patient and/or the family, discussion with consultants and/or other medical personnel, documentation, and monitoring for potential decompensation. Decision To Admit - Decistion To Admit Decision to Admit Reason: Admit from ER Decision to Admit Date: 09/14/19 Decision to Admit Time: 19:58
--- NOTE | 2019-09-14 16:58 | RAD ---
EXAM DESCRIPTION: Chest,1 View CLINICAL HISTORY: 74 years Female, dyspnea COMPARISON: January 14, 2017 TECHNIQUE: AP portable chest. FINDINGS: Single view of the chest demonstrates a poor inspiration with mild cardiomegaly and accentuated cardiac silhouette with tortuous aorta. Vascularity is upper limits of normal without overt failure. Dense consolidation is not apparent. No large effusions or pneumothorax noted. IMPRESSION: Poor inspiration with borderline or mild cardiomegaly without overt failure. Electronically signed by: Venkat Anguiano MD 09/14/2019 4:56 PM CHORE WORKER
[2019-09-14] MEDS ORDERED: PIPERACILLIN/TAZOBACTAM 2.25 GM in SODIUM CHLORIDE 0.9% 50ML 50 ML IVPB ONE (17:35)
[2019-09-14] MEDS ORDERED: SODIUM CHLORIDE 0.9% 50ML 50 ML ONE (17:40)
[2019-09-14] MEDS ORDERED: PIPERACILLIN/TAZOBACTAM 2.25 GM VIAL IVPB ONE (17:40)
[2019-09-14] MEDS ORDERED: MORPHINE SULFATE INJ 10 MG/ML VIAL IV ONE (18:04)
--- NOTE | 2019-09-14 18:49 | RAD ---
EXAM DESCRIPTION: Hip, left 2 Views CLINICAL HISTORY: 74 years Female worsening left hip pain COMPARISON: None. TECHNIQUE: Two views of the left hip. FINDINGS: The study is suboptimal from patient body habitus. Mild to moderate degenerative changes are again visualized. No acute fractures or dislocations are identified. No osseous destructive lesions. IMPRESSION: The study is suboptimal from patient body habitus. No definite acute osseous abnormality is identified. CT or MRI could be obtained to better evaluate if there is continued clinical concern. Electronically signed by: Miah Shrestha MD 09/14/2019 6:48 PM HEARING HEALTHCARE PRACTITIONER
--- NOTE | 2019-09-14 19:07 | CT ---
PROCEDURE: Chest w/o Contrast (accession [id number]), Abdoment/Pelvis w/o Contrast (accession [id number]) CLINICAL HISTORY: 74 years Female sepsis, unknown source, shortness of breath, lactic acidosis, acute anemia. COMPARISON: CT pelvis study from 08/09/2019. TECHNIQUE: Contiguous axial images obtained through the chest, abdomen and pelvis without IV contrast. Reformatted images obtained. This exam was performed according to our department optimization program which includes automated exposure control, adjustment of the mA and/or kv according to patient size and/or use of iterative reconstruction technique. FINDINGS: The mediastinum appears unremarkable. Atherosclerotic calcifications. A coronary artery stent is visualized. Atherosclerotic calcifications in the aorta and proximal great vessels. No consolidating infiltrates or pleural effusions. No pneumothorax. Mild dependent atelectasis/scarring. 0.3 cm nodular lesion in the right lower lung on axial image 68/97. The liver appears unremarkable. The spleen and pancreas appear unremarkable. No adrenal masses. There is a nonobstructing lower pole left renal calculus measuring approximately 0.6 cm. No hydronephrosis or ureteral calculi. The gallbladder is visualized. Atherosclerotic calcifications. There is a large calcific plaque in the distal left renal artery. No aneurysmal dilatation of the aorta. No bowel obstruction. The appendix is not definitely visualized. Occasional colonic diverticula. Questionable wall thickening in portions of the descending and sigmoid colon versus changes from incomplete distention. No free pelvic fluid. There are changes from previous hysterectomy. Small fat-containing umbilical hernia. Degenerative changes in the spine. IMPRESSION: Questionable wall thickening in portions of the descending and sigmoid colon versus changes from incomplete distention. Clinical correlation recommended to exclude the possibility of infectious or inflammatory colitis. Nonobstructing lower pole left renal calculus. Atherosclerotic changes. 3.0 mm solid pulmonary nodule. No routine follow-up imaging is recommended. These guidelines do not apply to immunocompromised patients and patients with cancer. Follow up in patients with significant comorbidities as clinically warranted. For lung cancer screening, adhere to Lung-RADS guidelines. Reference: Radiology. 2017; 284(1):228-43. Electronically signed by: Miah Shrestha MD 09/14/2019 7:06 PM G[employer] PROCESSING PLANT OPERATOR
--- NOTE | 2019-09-14 20:37 | HP ---
SUPERVISING PHYSICIAN: Venkat Barragan MD CHIEF COMPLAINT: Low blood sugar. HISTORY OF PRESENT ILLNESS: This is a 74-year-old female with a history of diabetes and actually has been admitted before for hypoglycemia. She came to the Emergency Room with hypoglycemia. She was apparently going to a doctor's appointment this morning, took her insulin as regularly scheduled, both long- acting and short-acting. She was at [employer] and ate about half of a hotdog. She does not really remember a whole lot after that. She became weak with shortness of breath and altered mental status. She could not get up, so EMS was called. She was found to have a blood sugar in the 50s. EMS gave D10. On arrival, the patient's blood sugars were in the 180s, however, she was also hypoxic and hypotensive. The patient was given a bolus of IV fluids. Further workup was done with CT of the chest which did not show any active infectious process, but did find an incidental [address] scan of the abdomen and pelvis showed questionable wall thickening in the descending and sigmoid colon. It should be noted she has not had any complaints of diarrhea and had a chest x-ray without any signs of pneumonia. She also had labs which showed white count 12,000 with a left shift of 78.8, hemoglobin 9.3. D-dimer was elevated at 0.[address] angiogram could not be done due to creatinine. Chemistry showed a potassium 3.5, BUN 66, creatinine 3.44. Her initial lactic acid was 5.5, but improved to 2.6 after fluids. Troponin was negative at 0.02. EKG without any acute findings. She has not been able to provide urine for urinalysis as of yet. At time of examination, the patient is alert and oriented and able to converse with me easily. She is telling me very long stories at this time. She does have some distress secondary to hip pain which was diagnosed as bursitis and she said it started about a month ago. PAST MEDICAL HISTORY: 1. Diabetes mellitus. 2. Hypertension. 3. Coronary artery disease. 4. Allergies. 5. Hyperlipidemia. 6. Morbid obesity. PAST SURGICAL HISTORY: 1. Appendectomy. 2. Tonsillectomy. 3. Hysterectomy. 4. PTCA with stent. 5. Kidney stone extraction. ALLERGIES: CODEINE. FAMILY HISTORY: Father from diabetes at age 83. Mother at a young age in 1945 of unknown cause. SOCIAL HISTORY: She only socially drinks, no smoking, no illicit drugs. She is . REVIEW OF SYSTEMS: CONSTITUTIONAL: No fever or chills. No recent weight loss or weight gain. HEENT: No headaches, vision changes, ear pain, nasal congestion or throat pain. RESPIRATORY: Positive for some shortness of breath. No cough, hemoptysis or pleuritic chest pain. CARDIOVASCULAR: No chest pain, palpitations or peripheral edema. GASTROINTESTINAL: No nausea, vomiting, diarrhea, constipation or abdominal pain. GENITOURINARY: No dysuria, frequency or flank pain, but she has not gone to the restroom as much as she normally does. HEMATOLOGIC: No easy bruising and no transfusion reaction. MUSCULOSKELETAL: No myalgias. She does have arthralgia with the right hip bursitis. ENDOCRINE: No polydipsia, polyuria or polyphagia. No heat or cold intolerance. NEUROLOGIC: She had altered mental status sand dizziness earlier, but no syncope or paresthesias. PHYSICAL EXAMINATION: VITAL SIGNS: Blood pressure 101/77. Heart rate 93. Respiratory rate 18. Temperature 97.3. Oxygen saturation 96%. GENERAL: Ms. Cottrell is a 74-year-old female who is in mild distress secondary to right hip pain. NEUROLOGIC: The patient is alert and oriented. LUNGS: Clear to auscultation bilaterally. CARDIOVASCULAR: Regular rate and rhythm. Normal S1, S2. ABDOMEN: Soft. Positive bowel sounds. GENITOURINARY: Deferred. EXTREMITIES: Lower extremities with no significant edema. LABORATORY: Labs and films are as discussed in history of present illness. ASSESSMENT: 1. Sepsis of unknown source at this time. 2. Hypoglycemia, improved. 3. Altered mental status, presumably secondary to hypoglycemia. 4. Acute kidney injury, possibly on chronic. 5. Diabetes mellitus, type 2. 6. Possible descending and sigmoid colitis via CT scan. 7. History of hypertension with current hypotension. 8. Morbid obesity. PLAN: At this time, the patient will be admitted and treated as though she is septic. She is hypotensive with elevated lactate and although there is no source, we have given her 30 mL per kg IV fluids with improvement in her blood pressure. There has also been at this point improvement in her lactate. I am placing her on empiric antibiotics with Zosyn as well as vancomycin. We will follow cultures. We will also monitor her blood sugars every 4 hours to ensure she does not have any recurrent hypoglycemia. I placed her on a renal dose of Lovenox for DVT prophylaxis and a proton pump inhibitor for GI ulcer prophylaxis. Regarding her right hip pain, I have ordered some morphine. We will give that as sparingly as possible. #[id number] [id number]
[2019-09-14] MEDS ORDERED: MORPHINE SULFATE INJ 10 MG/ML VIAL IV PRN (21:18)
[2019-09-14] MEDS ORDERED: IV SET AND CAP CHANGE INJ INJ SCH (21:30)
[2019-09-14] MEDS ORDERED: VANCOMYCIN HCL INJ 2,000 MG in SODIUM CHLORIDE 0.9% 500ML 500 ML IVPB ONE (21:30)
[2019-09-14] MEDS ORDERED: GLUCAGON INJ 1 MG VIAL SUBCU PRN (21:36)
[2019-09-14] MEDS ORDERED: DEXTROSE 10% 500ML IVPB PRN (21:36)
[2019-09-14] MEDS ORDERED: VANCOMYCIN HCL INJ 1,000 MG VIAL IVPB ONE (22:20)
[2019-09-14] MEDS ORDERED: SODIUM CHLORIDE 0.9% 500ML 500 ML ONE (22:20)
[2019-09-14] MEDS: PANTOPRAZOLE SODIUM IV 40 MG VIAL IV SCH (22:24)
[2019-09-14] MEDS: LACTATED RINGERS 1,000 ML IVS PRN (22:27)
[2019-09-15] MEDS ORDERED: SODIUM CHLORIDE 0.9% 100ML 100 ML IVPB ONE ×2 (09:27→19:33)
[2019-09-15] MEDS ORDERED: PIPERACILLIN/TAZOBACTAM 3.375 GM VIAL IVPB ONE ×2 (09:27→19:32)
[2019-09-15] MEDS: ENOXAPARIN SODIUM 30 MG/0.3 ML SYG SUBCU SCH (09:36)
[2019-09-15] MEDS: NYSTATIN POWDER 15GM BTTL TOP SCH ×2 (09:36→21:03)
[2019-09-15] MEDS: PIPERACILLIN/TAZOBACTAM 3.375 GM in SODIUM CHLORIDE 0.9% 100ML 100 ML IVPB SCH ×2 (09:37→21:03)
--- NOTE | 2019-09-15 09:44 | PCM.PROG ---
PCM Subjective - Review of Systems Events since last encounter: Patient states that she feels better than she did yesterday. No complaints of shortness of breath, nausea, vomiting, or chills. Nurses report no significant events overnight. Still with some right hip discomfort, but once again, this is chronic, and improved from yesterday. Objective - Exam Vitals and I&O: Vital Signs Temp 97.6 F 09/15/19 05:56 Pulse 76 09/15/19 05:56 Resp 17 09/15/19 05:56 BP 104/67 09/15/19 05:56 Pulse Ox 96 09/15/19 05:56 Intake & Output 09/14/19 09/15/19 09/15/19 18:59 06:59 18:59 Intake Total 360 Output Total 200 700 Balance 160 -700 Weight 260 lb 263 lb 8 oz Intake: Oral 360 Output: Urine 200 700 Other: Weight Measurement Method [facility] General: Alert, Oriented x3, Cooperative, No acute distress HEENT: Atraumatic, PERRLA, Mucous membr. moist/pink Neck: Supple Lungs: Clear to auscultation Cardiovascular: Regular rate, Normal S1, Normal S2 Abdomen: Normal bowel sounds, Soft, No tenderness Extremities: No edema - Results Results: Laboratory Results WBC 11.5 K/mm3 (4.8-10.8) H 09/15/19 05:00 RBC 3.71 M/mm3 (4.20-5.40) L D 09/15/19 05:00 Hgb 11.4 gm/dL (12.0-16.0) L D 09/15/19 05:00 Hct 36.0 % (36.0-47.0) D 09/15/19 05:00 MCV 97.0 fl (81.0-99.0) 09/15/19 05:00 MCH 30.8 pg (27.0-31.0) 09/15/19 05:00 MCHC 31.7 g/dL (33.0-37.0) L 09/15/19 05:00 RDW 14.6 % (11.5-14.5) H 09/15/19 05:00 Plt Count 254 K/mm3 (130-400) 09/15/19 05:00 MPV 8.9 fl (7.40-10.4) 09/15/19 05:00 Absolute Neuts (auto) 8.00 K/uL (1.8-6.8) H 09/15/19 05:00 Absolute Lymphs (auto) 2.00 K/uL (1.0-3.4) 09/15/19 05:00 Absolute Monos (auto) 1.00 K/uL (0.2-0.8) H 09/15/19 05:00 Absolute Eos (auto) 0.40 K/uL (0.0-0.4) 09/15/19 05:00 Absolute Basos (auto) 0.10 K/uL (0.0-0.1) 09/15/19 05:00 Neutrophils % 69.6 % (42.0-78.0) 09/15/19 05:00 Lymphocytes % 17.6 % (20.0-50.0) L 09/15/19 05:00 Monocytes % 8.4 % (2.0-9.0) 09/15/19 05:00 Eosinophils % 3.7 % (1.0-5.0) 09/15/19 05:00 Basophils % 0.7 % (0.0-2.0) 09/15/19 05:00 D-Dimer, Quantitative 0.88 mg/L FEU (0-0.49) H* 09/14/19 16:20 Sodium 137 mmol/L (135-145) 09/15/19 05:00 Potassium 4.2 mmol/L (3.6-5.0) 09/15/19 05:00 Chloride 105 mmol/L (101-111) 09/15/19 05:00 Carbon Dioxide 16 mmol/L (21-31) L 09/15/19 05:00 Anion Gap 20.2 (12-18) H 09/15/19 05:00 BUN 66 mg/dL (7-18) H 09/15/19 05:00 Creatinine 3.41 mg/dL (0.6-1.3) H 09/15/19 05:00 BUN/Creatinine Ratio 19.4 (10-20) 09/15/19 05:00 POC Glucose 153 mg/dL (70-105) H D 09/15/19 08:30 Random Glucose 134 mg/dL (70-105) H 09/15/19 05:00 Serum Osmolality Not Reportable 09/15/19 05:00 Lactic Acid 1.9 mmol/L (0.5-2.2) 09/15/19 05:00 Calcium 7.8 mg/dL (8.4-10.2) L 09/15/19 05:00 Total Bilirubin 0.4 mg/dL (0.2-1.0) 09/15/19 05:00 AST 16 IU/L (10-42) 09/15/19 05:00 ALT 14 IU/L (10-60) 09/15/19 05:00 Alkaline Phosphatase 41 IU/L (42-121) L 09/15/19 05:00 Troponin I 0.02 ng/mL (0.01-0.05) 09/14/19 16:20 B-Natriuretic Peptide < 5.0 pg/ml (0-100) 09/14/19 16:20 Serum Total Protein 5.4 gm/dL (6.4-8.2) L 09/15/19 05:00 Albumin 3.0 g/dl (3.2-5.5) L 09/15/19 05:00 Globulin 2.4 gm/dL (2.3-3.5) 09/15/19 05:00 Albumin/Globulin Ratio 1.3 (1.1-1.9) 09/15/19 05:00 Assessment/Plan - Assessment Assessment: 1. Sepsis with unknown source. 2. Hypoglycemia, improved. 3. AMS, resolved. 4. DM2. 5. Possible descending and sigmoid colitis. 6. History of HTN. 7. LUMA. 8. Morbid obesity. - Plan for Current Visit Plan: Slight improvement in WBC and creatinine. Will continue IV fluids and antibiotics. We were finally able to get a urine sample, so will check that for UTI once resulted. Her brought her home medication list, so will update that and resume the appropriate medications. I informed her she needed to ambulate TID today. Continue glucose checks every 4 hrs. Will start sliding scale once consistently high. Recheck labs tomorrow.
[2019-09-15] MEDS: LACTATED RINGERS 1,000 ML IVS PRN (11:00)
[2019-09-15] MEDS ORDERED: SODIUM CHLORIDE 0.9% 500ML 500 ML ONE (17:41)
[2019-09-15] MEDS ORDERED: VANCOMYCIN HCL INJ 1,000 MG VIAL IVPB ONE (17:42)
[2019-09-15] MEDS: VANCOMYCIN HCL INJ 2,000 MG in SODIUM CHLORIDE 0.9% 500ML 500 ML IVPB SCH (17:52)
[2019-09-15] MEDS: MELOXICAM 7.5 MG TAB PO SCH (20:25)
[2019-09-15] MEDS: HYDROcodone 5MG/APAP 325MG 1 EA TAB PO PRN (20:25)
[2019-09-15] MEDS: PANTOPRAZOLE SODIUM IV 40 MG VIAL IV SCH (21:03)
[2019-09-15] MEDS: GABAPENTIN 300 MG CAP PO SCH (21:17)
[2019-09-16] MEDS: LACTATED RINGERS 1,000 ML IVS PRN ×2 (01:15→08:55)
[2019-09-16] MEDS ORDERED: CYANOCOBALAMIN 1,000 MCG TAB ONE (08:00)
[2019-09-16] MEDS ORDERED: SODIUM CHLORIDE 0.9% 100ML 100 ML IVPB ONE (08:01)
[2019-09-16] MEDS ORDERED: PIPERACILLIN/TAZOBACTAM 3.375 GM VIAL IVPB ONE (08:01)
[2019-09-16] MEDS: MELOXICAM 7.5 MG TAB PO SCH (08:53)
[2019-09-16] MEDS: GABAPENTIN 300 MG CAP PO SCH ×3 (08:54→20:49)
[2019-09-16] MEDS: ASPIRIN TABLET 325 MG TAB PO SCH (08:54)
[2019-09-16] MEDS: ENOXAPARIN SODIUM 30 MG/0.3 ML SYG SUBCU SCH (08:54)
[2019-09-16] MEDS: NYSTATIN POWDER 15GM BTTL TOP SCH ×2 (08:55→20:48)
[2019-09-16] MEDS: ALLOPURINOL 300 MG TAB PO SCH (08:55)
[2019-09-16] MEDS: PIPERACILLIN/TAZOBACTAM 3.375 GM in SODIUM CHLORIDE 0.9% 100ML 100 ML IVPB SCH (08:55)
[2019-09-16] MEDS ORDERED: CYANOCOBALAMIN 2500 MCG SL SCH (09:00)
[2019-09-16] MEDS: DICLOFENAC SODIUM TD SCH ×4 (09:27→20:57)
--- NOTE | 2019-09-16 13:17 | PN ---
SUPERVISING PHYSICIAN: Venkat Barragan MD DATE: 09/16/19 SUBJECTIVE: The patient is sitting up in the chair in her room. She has been evaluated by [facility] and she will be discharged there today or tomorrow. She is concerned that her blood sugars were slightly up today in the low 200. She takes a large amount of the long-acting insulin at home, 50 units twice a day plus 20 units of short-acting insulin prior to each meal and was concerned about her insulin dosage. Those will be re-started at a lower dose for right now. She denies any shortness of breath, chest pain, nausea or vomiting. OBJECTIVE: VITAL SIGNS: Temperature 97.6. Heart rate 85. Blood pressure 176/74. Respiratory rate 60. O2 saturation 94% on room air. RESPIRATORY: Diminished at the bases, otherwise clear to auscultation. CARDIAC: Regular rate and rhythm. GASTROINTESTINAL: Abdomen is soft, nondistended, nontender. Bowel sounds are positive. NEUROLOGIC: Awake, alert and oriented times three. LABORATORY: CBC is basically unremarkable. Electrolytes are within normal limits. Creatinine is improved to 1.62. All other labs and films have been reviewed via the EMR. ASSESSMENT: 1. Sepsis with unknown source. 2. Hypoglycemia, improved. 3. Altered mental status, resolved. 4. Diabetes mellitus, type 2. 5. Possible descending and sigmoid colitis. 6. History of hypertension. 7. Acute kidney injury. 8. Morbid obesity. PLAN: We will continue present supportive care. Hopefully she can discharge to [facility] either this afternoon or tomorrow. I have resumed her metformin as well as her MITZY inhibitor. I discontinued her Zosyn and started her on Augmentin. I also put her on sliding scale NovoLog insulin protocol and started her on 10 units of Levemir tonight. She normally gets 50 units b.i.d., but her blood sugars have run in the mid-150s to the low 200s, so we may need to adjust those over the next few days. I have ordered a BMP for in the morning to check kidney function although that has mostly normalized at her baseline. We will continue to monitor the patient closely and follow as needed. [facility][id number]
[2019-09-16] MEDS: INSULIN LISPRO 100 UNITS/ML PEN SUBCU SCH ×2 (16:30→20:49)
[2019-09-16] MEDS ORDERED: VANCOMYCIN HCL INJ 1,000 MG VIAL IVPB ONE (16:31)
[2019-09-16] MEDS ORDERED: SODIUM CHLORIDE 0.9% 500ML 500 ML ONE (16:31)
[2019-09-16] MEDS: VANCOMYCIN HCL INJ 2,000 MG in SODIUM CHLORIDE 0.9% 500ML 500 ML IVPB SCH (16:44)
[2019-09-16] MEDS: AMOXICILLIN & POT CLAVULANATE 875 MG TAB PO SCH (20:48)
[2019-09-16] MEDS: metFORMIN HCL 500 MG TAB PO SCH (20:48)
[2019-09-16] MEDS ORDERED: NON-FORMULARY MEDICATION 1 EA MIS (Metformin Hcl [Metformin Hydrochloride] 1,000 MG) PO SCH (21:00)
[2019-09-16] MEDS ORDERED: INSULIN DETEMIR 100 UNITS/ML PEN SUBCU SCH (21:00)
[2019-09-16] MEDS ORDERED: RAMIPRIL 10 MG PO SCH (21:00)
[2019-09-16] MEDS: PANTOPRAZOLE SODIUM IV 40 MG VIAL IV SCH (21:30)
[2019-09-16] MEDS: RAMIPRIL 5 MG CAP PO SCH (22:49)
[2019-09-17] MEDS: LACTATED RINGERS 1,000 ML IVS PRN (02:01)
[2019-09-17] MEDS: INSULIN LISPRO 100 UNITS/ML PEN SUBCU SCH ×4 (07:42→21:12)
[2019-09-17] MEDS: CYANOCOBALAMIN 1,000 MCG TAB PO SCH (08:13)
[2019-09-17] MEDS: MELOXICAM 7.5 MG TAB PO SCH (08:14)
[2019-09-17] MEDS: GABAPENTIN 300 MG CAP PO SCH ×3 (08:14→20:22)
[2019-09-17] MEDS: ALLOPURINOL 300 MG TAB PO SCH (08:15)
[2019-09-17] MEDS: ASPIRIN TABLET 325 MG TAB PO SCH (08:15)
[2019-09-17] MEDS: AMOXICILLIN & POT CLAVULANATE 875 MG TAB PO SCH ×2 (08:15→20:22)
[2019-09-17] MEDS: metFORMIN HCL 500 MG TAB PO SCH ×2 (08:15→21:11)
[2019-09-17] MEDS: ENOXAPARIN SODIUM 30 MG/0.3 ML SYG SUBCU SCH (08:16)
[2019-09-17] MEDS: NYSTATIN POWDER 15GM BTTL TOP SCH ×2 (08:17→20:23)
[2019-09-17] MEDS: DICLOFENAC SODIUM TD SCH ×4 (08:18→20:22)
[2019-09-17] MEDS ORDERED: MAGNESIUM SULFATE PREMIX 4GM 4 GM in PREMIX BAG 1 BAG IVPB ONE (08:28)
[2019-09-17] MEDS ORDERED: MAGNESIUM SULFATE PREMIX 4GM 50 ML IVPB ONE (08:46)
[2019-09-17] MEDS: RAMIPRIL 5 MG CAP PO SCH (12:41)
[2019-09-17] MEDS ORDERED: INSULIN DETEMIR 100 UNITS/ML PEN SUBCU SCH (17:12)
--- NOTE | 2019-09-17 19:46 | PN ---
DATE: 09/17/19 SUPERVISING PHYSICIAN: Venkat Barragan M.D. SUBJECTIVE: The patient is sitting up in her chair visiting with friends. She has no complaints of chest pain, shortness of breath, nausea or vomiting. She does continue to be very weak with trying to ambulate. She [facility] OBJECTIVE: VITAL SIGNS: Temperature 97.1, heart rate 77, blood pressure 139//72, respiratory rate 20, O2 sat 96% on room air. RESPIRATORY: Diminished at the bases, otherwise clear to auscultation. CARDIAC: Regular rate and rhythm. GASTROINTESTINAL: Abdomen is soft, nondistended, non-tender. Bowel sounds are positive. NEUROLOGIC: She is awake, alert and oriented times three. LABORATORY: Electrolytes are basically within normal limits with the exception of her magnesium is low at 1.1. Blood sugars have run between 137 and 233. All other labs and films have been reviewed via the EMR. ASSESSMENT: 1. Sepsis with unknown source. 2. Hypoglycemia, improved. 3. Altered mental status, resolved. 4. Diabetes mellitus, type 2. 5. Possible descending and sigmoid colitis. 6. History of hypertension. 7. Acute kidney injury. 8. Morbid obesity. PLAN: We will continue supportive care. We are awaiting a bed at [facility]. I have discontinued her IV access and discontinued her IV medications. She will continue on her Augmentin. Upon discharge to [facility] we will need to change her insulin coverage for now as she is getting quite a bit less than she had prior to admission to the hospital. I have increased her to 12 units of long-acting insulin at bedtime and she will continue on her sliding scale a.c. and h.s. NovoLog coverage. Until we can transfer her to [facility], will continue to monitor closely and follow as needed. #[id number] [facility]
[2019-09-17] MEDS: RAMIPRIL 2.5 MG CAP PO SCH (20:22)
[2019-09-17] MEDS: HYDROcodone 5MG/APAP 325MG 1 EA TAB PO PRN (20:27)
[2019-09-18] MEDS: HYDROcodone 7.5MG/APAP 325MG 1 EA TAB PO PRN ×2 (04:21→12:27)
[2019-09-18] MEDS: INSULIN LISPRO 100 UNITS/ML PEN SUBCU SCH ×2 (07:22→11:46)
[2019-09-18] MEDS: MELOXICAM 7.5 MG TAB PO SCH (08:23)
[2019-09-18] MEDS: CYANOCOBALAMIN 1,000 MCG TAB PO SCH (08:23)
[2019-09-18] MEDS: AMOXICILLIN & POT CLAVULANATE 875 MG TAB PO SCH (08:23)
[2019-09-18] MEDS: GABAPENTIN 300 MG CAP PO SCH (08:23)
[2019-09-18] MEDS: ENOXAPARIN SODIUM 30 MG/0.3 ML SYG SUBCU SCH (08:24)
[2019-09-18] MEDS: metFORMIN HCL 500 MG TAB PO SCH (08:24)
[2019-09-18] MEDS: ALLOPURINOL 300 MG TAB PO SCH (08:24)
[2019-09-18] MEDS: RAMIPRIL 2.5 MG CAP PO SCH (08:24)
[2019-09-18] MEDS: ASPIRIN TABLET 325 MG TAB PO SCH (08:24)
[2019-09-18] MEDS: DICLOFENAC SODIUM TD SCH (08:29)
[2019-09-18] MEDS: NYSTATIN POWDER 15GM BTTL TOP SCH (08:29)
[2019-09-18 10:18] VITALS: BP 152/68; TEMP 97.8; O2SAT 96
[2019-09-22] MEDS ORDERED: NON-FORMULARY MEDICATION 1 EA MIS (Dulaglutide [Trulicity] 0.75 MG) SC SCH (09:00)
--- NOTE | 2019-09-25 10:56 | DS ---
SUPERVISING PHYSICIAN: Venkat Barragan MD DISCHARGE DIAGNOSIS: 1. Sepsis with unknown source. 2. Hypoglycemia, improved. 3. Altered mental status, resolved. 4. Diabetes mellitus, type 2, requiring a decrease in her insulin coverage. 5. Possible descending and sigmoid colitis. 6. History of hypertension, on medications. 7. Acute kidney injury, mostly resolved. 8. Morbid obesity. HISTORY OF PRESENT ILLNESS: This is a 74-year-old female patient who came to the Emergency Room due to hypoglycemia. She apparently had taken her insulin as regularly scheduled, both long-acting and short-acting. She was on her way to her primary care physician appointment and was at [employer] and ate about half of a hotdog. She does not really remember much after that. She was very weak with shortness of breath and altered mental status. She could not get up, so EMS was called. She was found to have a blood sugar in the 50s. EMS treated and brought her to the Emergency Room. At that time she was brought into the ER, she had a blood sugar in the 180s, but was hypoxic and hypotensive. The patient was given a liver of fluids. CT of the chest was done which showed no active infectious process, but there was an incidental [address] scan of the abdomen showed questionable wall thickening in the descending and sigmoid colon. It was noted she did not have any complaints of diarrhea and had a chest x-ray without any signs of pneumonia. Labs showed elevated white count at 12,000 with a left shift of 78.8, hemoglobin 9.3. D-dimer was elevated at 0.88. A CT angiogram could not be done due to creatinine. Chemistry showed a potassium 3.5, BUN 66, creatinine 3.44. Her initial lactic acid was 5.5, but improved to 2.6 after fluids. Troponin was negative at 0.02. EKG showed no acute findings. She had been unable to provide urine at admission. She also had some complaints of some hip pain which was diagnosed as bursitis over a month ago. She was admitted to the hospital and treated for sepsis of unknown etiology. HOSPITAL COURSE: The patient was hypotensive at admission with an elevated lactate. She was given appropriate fluid boluses. Her blood pressure improved. She was also placed on empiric antibiotics with Zosyn as well as vancomycin. Cultures were completed. Her blood sugars were monitored every 4 hours. She was also given a renal dose of Lovenox for DVT prophylaxis and a proton pump inhibitor for GI ulcer prophylaxis. Morphine was ordered for pain. Overnight and after the addition of fluids and antibiotics, the patient's blood pressure came up to 116/53 although she did continue with some shortness of breath with her respiratory rate in the mid 20s. On oxygen, her O2 saturation did improve to the mid to lower 90s. Her hip pain improved as well as her creatinine. Her hypoglycemia improved and her blood sugars stabilized in the 150s to mid 200s. Sliding scale protocol was initiated. She was ordered to ambulate in the hallways, but was unable to make lissette much progress. At that time, it was decided that she may need an [facility] referral due to her weakness. Her labs improved. Her vital signs improved. It is to be noted that her home medication listed her long-acting insulin at 50 units b.i.d. and her short- acting insulin was 20 units prior to each meal. Her insulin was started back at 10 units subcutaneously at bedtime. She was also on sliding scale a.c. and h.s. Her Zosyn was discontinued and she was started on Augmentin. Her long-acting insulin was then increased to 12 units at h.s. Her blood sugar checks remained in the upper 100s to low 200s. [facility] accepted the patient, but initially they were unable to complete the transfer because there were no female beds. Today, she was able to transfer to rehab as they have an available bed. She will be discharged from the hospital in stable condition. LABORATORY: WBCs started out at 12,000 and on discharge are 7,800. Hemoglobin and hematocrit were low at 9.3 and 28.9 on admission and on discharge were 12.2 and 37. There is no left shift on her differential. Electrolytes are now stable although she had a magnesium of 1.1 and required supplementation of 4 grams of magnesium. Lactic acid improved from 5.5 on admission to 2.6 after fluids and 1.9 on discharge. BNP was less than 5. Urinalysis was unremarkable. Influenza A and B per PCR were negative. RADIOLOGY: Her films were as per the history of present illness. DISCHARGE PLAN: The patient will be discharged to [facility] in stable condition. She is to resume her previous diabetic diet. Her activity will be as per physical therapy. She is to followup with Ata Russell, her primary care provider, in 1 to 2 weeks after discharge. A complete list of her medications and changes were sent to [facility]. She is to return to the hospital or followup with Ata Russell for any problems or complications. DISCHARGE MEDICATIONS: 1. Aspirin. 2. Ramipril. 3. Nitroglycerin. 4. Metformin. 5. Hydrochlorothiazide. 6. Gabapentin. 7. Mobic. 8. Allopurinol. 9. Vitamin B12. 10. Tramadol. 11. Multivitamin. 12. Trulicity. 13. Furosemide. 14. Hydrocodone. 15. Diclofenac. 16. Augmentin. 17. Levemir 12 units at bedtime. 18. Humalog insulin per sliding scale protocol. Blood sugars checked at a.c. and h.s. 19. Nystatin. #[id number] [facility]
== END 2019-09-18 12:39 | disposition home or self-care (01) | DRG 871 ==
LOC: ER 15:44 → MS 20:36 → OBSVTOIN 20:36
PROVIDERS: ADMIT Nurse Practitioner; ATTEND Nurse Practitioner
DX: A41.9 Sepsis, unspecified organism (principal); R65.21 Severe sepsis with septic shock; N17.9 Acute kidney failure, unspecified; Z68.41 Body mass index [BMI] 40.0-44.9, adult; I10 Essential (primary) hypertension; I25.10 Atherosclerotic heart disease of native coronary artery without angina pectoris; E78.5 Hyperlipidemia, unspecified; E11.649 Type 2 diabetes mellitus with hypoglycemia without coma; K52.9 Noninfective gastroenteritis and colitis, unspecified; E66.01 Morbid (severe) obesity due to excess calories; Z79.82 Long term (current) use of aspirin; Z79.84 Long term (current) use of oral hypoglycemic drugs; Z79.4 Long term (current) use of insulin; Z95.5 Presence of coronary angioplasty implant and graft

== ENCOUNTER → 2019-10-03 | Outpatient (CLI) | payer MEDICARE, OTHER | LOC: BFHH 09:15 | PROVIDERS: ATTEND Nurse Practitioner Family | DX: M70.62 Trochanteric bursitis, left hip (principal); E11.40 Type 2 diabetes mellitus with diabetic neuropathy, unspecified; A41.9 Sepsis, unspecified organism ==

== ENCOUNTER 2019-10-26 12:27 | Emergency (ER) | payer MEDICARE, OTHER ==
[2019-10-26] MEDS ORDERED: KETOROLAC TROMETHAMINE INJ 30 MG/ML VIAL IM ONE (12:40)
[2019-10-26] MEDS ORDERED: valACYclovir 500 MG TAB PO ONE (12:41)
--- NOTE | 2019-10-26 13:14 | RAD ---
2 radiographs left hip. 2 radiographs left femur. Two-view radiographs left knee. Indication: pain, no trauma Comparison: None Impression: No appreciable fracture of the left hip, left femur, or left knee identified. Evaluation for fracture is limited given the degree of osteopenia. If high clinical concern for acute left hip fracture, correlation with MRI recommended given its greater sensitivity in the osteopenic patient. If the patient cannot tolerate MRI imaging or more urgent imaging is required, CT could be performed, however it is less sensitive in the osteopenic patient when compared to MRI. Mild left hip osteoarthritis. Moderate to severe tricompartmental osteoarthritis of the left knee, most pronounced at the medial compartment. Tiny knee effusion suspected. Osteopenia. If this is a new finding, DEXA scan recommended as well as evaluation for possible osteoporosis treatment. Electronically signed by: Michael Damon MD 10/26/2019 1:13 PM [facility]
--- NOTE | 2019-10-26 14:10 | ED.PDOC ---
History of Present Illness - General Chief Complaint: General Stated Complaint: left hip, shingles Time Seen by Provider: 10/26/19 12:40 Source: patient Exam Limitations: no limitations - History of Present Illness Initial Comments: The patient is a 74-year-old female presented emergency room secondary to pain in her left leg. The patient has recurrent shingles in that area. It extends from the left posterior buttock around her hip laterally to the anterior aspect of her thigh and the pain extends down the terrell. This appears to be the L4 nerve distribution. Lesions have been present about 6 days. She has not restarted any antivirals. She already takes gabapentin and hydrocodone. No evidence of any sepsis. No fevers. No trauma. She has pain through the entirety of the leg. This is the reason for her presentation. Found with a walker. No evidence of any trauma. No deformity. No neurologic deficits. Timing/Duration: 1 week Severity: severe Improving Factors: nothing Worsening Factors: other - Touching the areas Associated Symptoms: denies symptoms Allergies/Adverse Reactions: Allergies Codeine Allergy (Verified 01/14/17 05:22) Home Medications: Ambulatory Orders Aspirin 325 mg PO DAILY 01/14/17 Gabapentin 600 mg PO TID 01/14/17 Hydrochlorothiazide 12.5 mg PO DAILY 01/14/17 Meloxicam [Mobic] 15 mg PO DAILY 01/14/17 Metformin HCl [Metformin Hydrochloride] 1,000 mg PO BID 01/14/17 Nitroglycerin 0.4 mg Tab [Nitrostat] 0.4 mg SL PRN 01/14/17 Ramipril 10 mg PO BID 01/14/17 Allopurinol 300 mg PO DAILY 08/09/19 Cyanocobalamin [Vitamin B-12] 2,500 mcg SL DAILY 08/09/19 Tramadol HCl 50 mg PO QID #10 tab 08/09/19 Diclofenac Sodium (Topical) [Diclofenac Sodium] 1.25 % TD QID 09/15/19 Dulaglutide [Trulicity] 0.75 mg SC WKLY 09/15/19 Furosemide Tab [Lasix Tab] 40 mg PO DAILY PRN 09/15/19 HYDROcodone 5MG/APAP 325MG 5 mg PO QID 09/15/19 Multi Complete 1 tablet PO DAILY 09/15/19 Amoxicillin & Pot Clavulanate [Augmentin Tab] 875 mg PO Q12H tab 09/18/19 Insulin Detemir [Levemir Pen] 12 units SUBCU BEDTIME pen 09/18/19 Insulin Lispro [Humalog] 0 units SUBCU ACHS pen 09/18/19 Nystatin Powder 1 applic TOP BID appli 09/18/19 Valacyclovir HCl [Valtrex] 1 gm PO Q8HR #20 tab 10/26/19 Review of Systems - Review of Systems Constitutional: States: malaise EENTM: States: no symptoms reported Respiratory: States: no symptoms reported Cardiology: States: no symptoms reported Gastrointestinal/Abdominal: States: no symptoms reported Genitourinary: States: no symptoms reported Musculoskeletal: States: no symptoms reported, see HPI Skin: States: see HPI Neurological: States: see HPI, paresthesia Endocrine: States: no symptoms reported All other Systems: No Change from Baseline Past Medical History (General) - Patient Medical History Hx Seizures: No Hx Stroke: No Hx Dementia: No Hx Asthma: No Hx of COPD: No Hx Cardiac Disorders: No Hx Congestive Heart Failure: No Hx Pacemaker: Yes Hx Hypertension: Yes Hx Thyroid Disease: No Hx Diabetes: Yes Hx Gastroesophageal Reflux: No Hx Renal Disease: No Hx Cancer: No Hx of HIV: No Hx Hepatitis C: No Hx MRSA: No Surgical History: appendectomy, tonsillectomy, Hysterectomy - Vaccination History Hx Tetanus, Diphtheria Vaccination: No Hx Influenza Vaccination: Yes Hx Pneumococcal Vaccination: Yes - Social History Hx Tobacco Use: No Hx Chewing Tobacco Use: No Hx Alcohol Use: No Hx Substance Use: No Hx Substance Use Treatment: No Hx Depression: No Hx Physical Abuse: No Hx Emotional Abuse: No Hx Suspected Abuse: No Family Medical History - Family History Mother Family History: Unknown Living Status: Cause of : Child Father Living Status: Physical Exam - Physical Exam General Appearance: Alert, Anxious Eye Exam: bilateral normal Ears, Nose, Throat: hearing grossly normal, normal pharynx Neck: full range of motion, supple Respiratory: lungs clear, normal breath sounds, no respiratory distress, no accessory muscle use Cardiovascular/Chest: normal peripheral pulses, no edema, other - Regular rate Peripheral Pulses: radial,right: 2+, radial,left: 2+ Gastrointestinal/Abdominal: non tender - Morbidly obese, soft Rectal Exam: deferred Back Exam: no CVA tenderness, no vertebral tenderness Extremity: normal range of motion, no pedal edema, normal capillary refill, other - Normal active and passive range of motion. Normal strength. Neurologic: code and test clerk II-XII nml as tested, alert, normal mood/affect, oriented x 3 Skin Exam: other - Shingles as per history of present illness. Comments: Vital Signs - 24 hr 10/26/19 12:38 Temperature 97.5 F L Pulse Rate [ 87 monitor] Respiratory 20 Rate Blood Pressure 177/81 [right forearm] O2 Sat by Pulse 94 L Oximetry Progress - Progress Progress: 10/26/19 14:12 The patient is a 74-year-old female presented emergency room secondary to pain related to recurrent shingles. The patient already has hydrocodone and gabapentin which she can continue to take. These will help some. The patient is going to be started on Valtrex 1 g 3 times a day for 7 days. She needs to follow back up with her primary care doctor towards the end of the week. Pain should improve with treatment of the shingles however it is possible that she may end up with some chronic pain related to it. ER warnings were given. Ambulate carefully to prevent falls. [email or web address] [id number] - Results/Orders Results/Orders: X-ray of the left hip, knee show no evidence of any fracture or dislocation. There are chronic degenerative changes. - EKG/XRAY/CT CT Ordered: No CT Interpretation Call Back: No Departure - Departure Clinical Impression: Shingles Qualifiers: Herpes zoster complications: without complications Qualified Code(s): B02.9 - Zoster without complications Disposition: Discharge to Home or Self Care Condition: Fair Departure Forms: ED Discharge - Pt. Copy, Patient Portal Self Enrollment Instructions: Shingles (DC) Diet: diabetic diet, low salt diet Activity: increase activity as tolerated Referrals: JOHAN OCONNOR IV, NEGATIVE DEVELOPER [Primary Care Provider] - 1-2 Weeks Prescriptions: Valacyclovir HCl [Valtrex] 1 gm PO Q8HR #20 tab Home Medications: Ambulatory Orders Aspirin 325 mg PO DAILY 01/14/17 Gabapentin 600 mg PO TID 01/14/17 Hydrochlorothiazide 12.5 mg PO DAILY 01/14/17 Meloxicam [Mobic] 15 mg PO DAILY 01/14/17 Metformin HCl [Metformin Hydrochloride] 1,000 mg PO BID 01/14/17 Nitroglycerin 0.4 mg Tab [Nitrostat] 0.4 mg SL PRN 01/14/17 Ramipril 10 mg PO BID 01/14/17 Allopurinol 300 mg PO DAILY 08/09/19 Cyanocobalamin [Vitamin B-12] 2,500 mcg SL DAILY 08/09/19 Tramadol HCl 50 mg PO QID #10 tab 08/09/19 Diclofenac Sodium (Topical) [Diclofenac Sodium] 1.25 % TD QID 09/15/19 Dulaglutide [Trulicity] 0.75 mg SC WKLY 09/15/19 Furosemide Tab [Lasix Tab] 40 mg PO DAILY PRN 09/15/19 HYDROcodone 5MG/APAP 325MG 5 mg PO QID 09/15/19 Multi Complete 1 tablet PO DAILY 09/15/19 Amoxicillin & Pot Clavulanate [Augmentin Tab] 875 mg PO Q12H tab 09/18/19 Insulin Detemir [Levemir Pen] 12 units SUBCU BEDTIME pen 09/18/19 Insulin Lispro [Humalog] 0 units SUBCU ACHS pen 09/18/19 Nystatin Powder 1 applic TOP BID appli 09/18/19 Valacyclovir HCl [Valtrex] 1 gm PO Q8HR #20 tab 10/26/19 Additional Instructions: The patient is a 74-year-old female presented emergency room secondary to pain related to recurrent shingles. The patient already has hydrocodone and gabapentin which she can continue to take. These will help some. The patient is going to be started on Valtrex 1 g 3 times a day for 7 days. She needs to follow back up with her primary care doctor towards the end of the week. Pain should improve with treatment of the shingles however it is possible that she may end up with some chronic pain related to it. ER warnings were given. Ambulate carefully to prevent falls.
[2019-10-26] MEDS ORDERED: HYDROcodone 7.5MG/APAP 325MG 1 EA TAB PO ONE (16:22)
[2019-10-26 18:10] VITALS: BP 146/82; TEMP 97.9; O2SAT 94
== END 2019-10-26 17:30 | disposition home or self-care (01) ==
LOC: ER 12:27
DX: B02.9 Zoster without complications (principal); I10 Essential (primary) hypertension; E11.9 Type 2 diabetes mellitus without complications; Z95.0 Presence of cardiac pacemaker; Z79.82 Long term (current) use of aspirin; Z79.899 Other long term (current) drug therapy; Z88.5 Allergy status to narcotic agent; Z79.4 Long term (current) use of insulin
CPT/HCPCS: 73502; 73551; 73560; J1885

== ENCOUNTER 2019-10-31 17:35 | Emergency (ER) | payer MEDICARE, OTHER ==
[2019-10-31] MEDS ORDERED: SODIUM CHLORIDE 0.9% 1000ML 1,000 ML IVS ONE (17:46)
[2019-10-31] MEDS ORDERED: SODIUM CHLORIDE 0.9% (FLUSH) 10 ML SYG IV PRN (17:46)
[2019-10-31] MEDS ORDERED: MEROPENEM 1 GM in SODIUM CHL 0.9% 50ML MIN-BAG+ 50 ML IVPB ONE (17:48)
--- NOTE | 2019-10-31 18:00 | ED.PDOC ---
History of Present Illness - General Chief Complaint: Possible Sepsis Stated Complaint: Hypotension Time Seen by Provider: 10/31/19 17:45 Source: patient, RN notes reviewed, Vital Signs reviewed, EMS notes reviewed, family Exam Limitations: no limitations - History of Present Illness Initial Comments: 74-year-old female presenting from rehab facility for BPs of 90/60 [facility] earlier today. She has been in the senior living for rehab for the past week. She had physical therapy yesterday. She was reporting worsening left leg and hip pain after physical therapy yesterday. She was given a dose of pain medicine earlier today preceding the episode of hypotension. Her states her speech has been slightly slurred throughout the day today, no focal weakness. She is also on Lasix for chronic CHF. Per EMS, her BP was 130/80 in route. They felt she might be slightly dehydrated due to her Lasix, so they initiated a small bolus of fluid.She has been admitted at [facility], had a prolonged admission there, subsequently went to a rehab facility in [place] and was discharged home 2 weeks ago. She was seen here earlier this month for her chronic back and leg pain, had normal workup and was sent to rehab facility here in [place]. There is been no new trauma, fall. Note denies any fever, cough, shortness of breath. Her only complaint at this time is persistent left leg pain. Review of her records from the senior living shows she has a history of radiculopathy of the left leg. She takes hydrocodone and gabapentin for chronic back and leg pain. Allergies/Adverse Reactions: Allergies Codeine Allergy (Verified 01/14/17 05:22) Latex Allergy (Verified 10/31/19 18:03) Home Medications: Ambulatory Orders Aspirin 325 mg PO DAILY 01/14/17 Gabapentin 300 mg PO TID 01/14/17 Metformin HCl [Metformin Hydrochloride] 1,000 mg PO BID 01/14/17 Nitroglycerin 0.4 mg Tab [Nitrostat] 0.4 mg SL PRN 01/14/17 Allopurinol 300 mg PO DAILY 08/09/19 Furosemide Tab [Lasix Tab] 40 mg PO DAILY 09/15/19 HYDROcodone 5MG/APAP 325MG 2 tablet PO Q6H PRN 09/15/19 Insulin Lispro [Humalog] 0 units SUBCU ACHS pen 09/18/19 Valacyclovir HCl [Valtrex] 1 gm PO Q8HR #20 tab 10/26/19 Acetaminophen [Acetaminophen Extra Stren] 1,000 mg PO QID PRN 10/31/19 Ibuprofen 800 mg PO TID 10/31/19 Insulin Detemir [Levemir Pen] 15 units SUBCU BEDTIME 10/31/19 Insulin Lispro [Humalog Kwikpen] 100 unit SC TIDFD 10/31/19 Telmisartan 80 mg PO DAILY 10/31/19 Thiamine HCl [Vitamin B-1] 250 mg PO DAILY 10/31/19 Tramadol HCl 50 mg PO Q6H PRN 10/31/19 Review of Systems - Review of Systems Constitutional: States: weakness - Generalized. Denies: chills, fever Respiratory: Denies: cough, orthopnea, short of breath Cardiology: Denies: chest pain, edema, palpitations Gastrointestinal/Abdominal: Denies: abdominal pain, diarrhea, nausea, vomiting Genitourinary: Denies: dysuria, hematuria Musculoskeletal: States: joint pain. Denies: joint swelling, muscle pain, neck pain Skin: Denies: change in color, rash Neurological: States: other - Slurred speech. Denies: anxiety, headache, numbness, tingling, weakness Endocrine: Denies: increased hunger, increased thirst, increased urine All other Systems: Reviewed and Negative Past Medical History (General) - Patient Medical History Hx Seizures: No Hx Stroke: No Hx Dementia: No Hx Asthma: No Hx of COPD: No Hx Cardiac Disorders: No Hx Congestive Heart Failure: No Hx Pacemaker: Yes Hx Hypertension: Yes Hx Thyroid Disease: No Hx Diabetes: Yes Hx Gastroesophageal Reflux: No Hx Renal Disease: No Hx Cancer: No Hx of HIV: No Hx Hepatitis C: No Hx MRSA: No - Vaccination History Hx Tetanus, Diphtheria Vaccination: No Hx Influenza Vaccination: Yes Hx Pneumococcal Vaccination: Yes - Social History Hx Tobacco Use: No Hx Chewing Tobacco Use: No Hx Alcohol Use: No Hx Substance Use: No Hx Substance Use Treatment: No Hx Depression: No Hx Physical Abuse: No Hx Emotional Abuse: No Hx Suspected Abuse: No Family Medical History - Family History Mother Family History: Unknown Living Status: Cause of : Child Father Living Status: Physical Exam - Physical Exam General Appearance: Alert, Comfortable Ears, Nose, Throat: normal ENT inspection, normal pharynx, other - Oral mucosa dry Neck: non-tender, full range of motion Respiratory: normal breath sounds, no respiratory distress, no accessory muscle use Cardiovascular/Chest: normal peripheral pulses, regular rate, rhythm Peripheral Pulses: dorsalis pedis,right: 1+, dorsalis pedis,left: 1+, posterior tibialis,right: 1+, posterior tibialis,left: 1+ Gastrointestinal/Abdominal: non tender, soft Back Exam: normal inspection, no vertebral tenderness Extremity: normal range of motion, non-tender, no pedal edema, no calf tenderness, other - Full range of motion of the hip, hip nontender. Thigh nontender. No calf tenderness. Neurologic: cooler deliverer II-XII nml as tested, no motor/sensory deficits, alert, normal mood/affect, oriented x 3, other - Normal finger-nose normal heel terrell. Speech is slightly slurred, no aphasia Skin Exam: normal color, warm/dry, rash - Intertriginous rash to groin skin folds bilaterally Progress - Progress Progress: 10/31/19 19:42 PM Recheck. Speech remains slightly slurred. BP improved. I discussed the labs, imaging with patient and family. Patient family requested to be transferred to [facility]. She was admitted there 2 months ago and had a prolonged hospitalization at that time. We do not have on-call nephrology at this facility, nor do we have dialysis services available. They would prefer not to go to [place]. 10/31/19 20:22 Patient accepted as a transfer by Dr. Oracio Bettencourt at [facility] ED Medical decision making: This patient has been in rehab facility for the last several days for chronic back pain with radiculopathy. She is on multiple nephrotoxic medications, including ARB, metformin, ibuprofen. Family states she is also not been eating or drinking well since she is been in rehab facility, suspected to be dehydrated as well. She was admitted here last month for acute kidney injury, which improved with IV hydration. She did not see a interactive video technician or get referred to a interactive video technician on an outpatient basis. Her presentation today is similar, with hypotension initially. Her BP improved significantly with IV fluids. Her previous baseline creatinine from last month's admission was 1.3, today is 4.8. Potassium is 5.5, no EKG changes suggestive of hyperka lemia. The patient was admitted at [facility] 2 months ago and had a prolonged admission at that time, and they are requesting to be transferred there tonight. I feel she likely needs nephrology consultation, but at this time doubt will need emergent dialysis. Due to her initial hypotension, she was treated empirically for possible sepsis. She was given meropenem, blood cultures, lactate drawn. She received a 1L bolus, but did not receive full 30 mL/kg due to normal lactate and ARF. 10/31/19 20:33 - Results/Orders Results/Orders: 7:18 PM Reviewed chest x-ray personally. Poor inspiratory effort, no pneumothorax, no infiltrate. No significant change from September 14, 2019. CT HEAD: IMPRESSION: No acute intracranial abnormality is identified. Generalized atrophy with microvascular ischemic changes. Electronically signed by: Christa Shrestha MD 10/31/2019 8:21 PM PCXR: IMPRESSION: Poor depth of inspiration with atelectasis the left base Electronically signed by: Christa Shrestha MD 10/31/2019 8:19 PM - EKG/XRAY/CT Comments: ST 111, LAD, prolonged QTC at 500, PRWP, lateral TWI (read 1809) XRAY: chest Departure - Departure Clinical Impression: Hypotension due to hypovolemia, Slurring of speech Acute renal failure (ARF) Qualifiers: Acute renal failure type: unspecified Qualified Code(s): N17.9 - Acute kidney failure, unspecified Disposition: Transfer to Hospital Condition: Fair Departure Forms: ED Discharge - Pt. Copy, Patient Portal Self Enrollment Instructions: DI for Sepsis -- Adult Referrals: DONIS WALLACE [Primary Care Provider] - 1-2 Weeks Home Medications: Ambulatory Orders Aspirin 325 mg PO DAILY 01/14/17 Gabapentin 300 mg PO TID 01/14/17 Metformin HCl [Metformin Hydrochloride] 1,000 mg PO BID 01/14/17 Nitroglycerin 0.4 mg Tab [Nitrostat] 0.4 mg SL PRN 01/14/17 Allopurinol 300 mg PO DAILY 08/09/19 Furosemide Tab [Lasix Tab] 40 mg PO DAILY 09/15/19 HYDROcodone 5MG/APAP 325MG 2 tablet PO Q6H PRN 09/15/19 Insulin Lispro [Humalog] 0 units SUBCU ACHS pen 09/18/19 Valacyclovir HCl [Valtrex] 1 gm PO Q8HR #20 tab 10/26/19 Acetaminophen [Acetaminophen Extra Stren] 1,000 mg PO QID PRN 10/31/19 Ibuprofen 800 mg PO TID 10/31/19 Insulin Detemir [Levemir Pen] 15 units SUBCU BEDTIME 10/31/19 Insulin Lispro [Humalog Kwikpen] 100 unit SC TIDFD 10/31/19 Telmisartan 80 mg PO DAILY 10/31/19 Thiamine HCl [Vitamin B-1] 250 mg PO DAILY 10/31/19 Tramadol HCl 50 mg PO Q6H PRN 10/31/19 Transfer to Outside Facility - Transfer Information Decision to Transfer Date: 10/31/19 Decision to Transfer Time: 19:55 Reason for Transfer: required specialist not available Accepting Facility: [facility]
[2019-10-31] MEDS ORDERED: MEROPENEM 1 GM VIAL IVPB ONE (18:08)
[2019-10-31] MEDS ORDERED: SODIUM CHL 0.9% 50ML MIN-BAG+ 50 ML IVPB ONE (18:08)
--- NOTE | 2019-10-31 20:21 | RAD ---
EXAM DESCRIPTION: Chest,1 View CLINICAL HISTORY: 74 years Female possible sepsis COMPARISON: 09/14/2019 FINDINGS: The cardiomediastinal silhouette appears unchanged. Poor depth of inspiration with mild cardiac enlargement. Suspect linear atelectasis in the left lung base. No consolidating infiltrates or pleural effusions. No pneumothorax. Increased density over the lower lung morales likely reflects overlying soft tissue artifact. IMPRESSION: Poor depth of inspiration with atelectasis the left base Electronically signed by: Christa Shrestha MD 10/31/2019 8:19 PM [facility]
--- NOTE | 2019-10-31 20:23 | CT ---
PROCEDURE: Head CLINICAL HISTORY: 74 years Female slurred speech, hypotension COMPARISON: None. TECHNIQUE: Contiguous axial CT images obtained through the brain without IV contrast. This exam was performed according to our department optimization program which includes automated exposure control, adjustment of the mA and/or kv according to patient size and/or use of iterative reconstruction technique. FINDINGS: The ventricles and sulci are prominent consistent with atrophic changes. Microvascular ischemic changes. No midline shift or mass effect. No mass lesions. No acute hemorrhage. Atherosclerotic calcifications. No fluid or significant mucosal thickening in the visualized paranasal sinuses. No depressed calvarial fractures. Focus of calcification in the sherif on the left. IMPRESSION: No acute intracranial abnormality is identified. Generalized atrophy with microvascular ischemic changes. Electronically signed by: Christa Shrestha MD 10/31/2019 8:21 PM [facility]
[2019-10-31 21:06] VITALS: TEMP 98.1
[2019-10-31 21:36] VITALS: BP 164/113; O2SAT 95
== END 2019-10-31 21:36 | disposition short-term general hospital (02) ==
LOC: ER 17:35
DX: I95.89 Other hypotension (principal); E86.1 Hypovolemia; R47.81 Slurred speech; N17.9 Acute kidney failure, unspecified; G31.9 Degenerative disease of nervous system, unspecified; I50.9 Heart failure, unspecified; G89.29 Other chronic pain; M25.552 Pain in left hip; M79.605 Pain in left leg; M54.9 Dorsalgia, unspecified; I10 Essential (primary) hypertension; E11.9 Type 2 diabetes mellitus without complications; Z95.0 Presence of cardiac pacemaker; Z79.899 Other long term (current) drug therapy; Z79.82 Long term (current) use of aspirin; Z88.5 Allergy status to narcotic agent; Z91.040 Latex allergy status
CPT/HCPCS: 70450; 71045; 80053; 81001; 82948; 83605; 83735; 84100; 84484; 85025; 85610; 85730; 87040; 87086; 93005; J2185; J7030; J7050